=== PATIENT | female | born 1955 | race Caucasian/White ===

== ENCOUNTER 2017-08-27 09:15 | Inpatient (IN) | payer BC ==
[2017-10-01] MEDS ORDERED: Sodium Chloride 0.9% 10 ML Syringe FLUSH PRN (00:01)
[2017-10-01] MEDS ORDERED: Lidocaine 1%/Sod Bicarbonate in NS 8.4% 1 ML Syringe IDERM PRN (00:01)
[2017-10-01] MEDS ORDERED: Ropivacaine 0.5% 5 MG/ML 30 ML SDV ONE (07:51)
[2017-10-01] MEDS ORDERED: EPINEPHrine 1 MG/ML SDV ONE (07:51)
[2017-10-01] MEDS: Lactated Ringers 1,000 ML IV SCH ×2 (09:25→12:28)
--- NOTE | 2017-10-01 10:01 | PCM.PREANE ---
Preanesthetic Assessment - Anesthesia/Transfusion/Family Hx Anesthesia History: Prior Anesthesia Without Reaction Family History of Anesthesia Reaction: No Transfusion History: No Prior Transfusion(s) Type of Transfusion Reactions: Reports: Unknown - Review of Systems General: No Symptoms Pulmonary: No Symptoms Cardiovascular: No Symptoms Gastrointestinal: No Symptoms Neurological: Numbness (hands and feet) Other: Reports: Easy Bleeding, Easy Bruising, Diabetes (132 this am) - Physical Assessment NPO Status Date: 10/01/17 NPO Status Time: 08:45 Pulse: 82 O2 Sat by Pulse Oximetry: 90 Respiratory Rate: 20 Blood Pressure: 122/86 Temperature: 36.9 C Vital Signs: Last Vital Signs Temp 36.9 C 10/01/17 09:10 Pulse 82 10/01/17 09:10 Resp 20 10/01/17 09:10 BP 122/86 10/01/17 09:10 Pulse Ox 90 L 10/01/17 09:10 Height: 1.57 m Weight: 104.1 kg ASA Class: 2 Mental Status: Alert & Oriented x3 Dentition: Reports: Normal Dentition (numb bottom right of chin), Dentures (top) Thyro-Mental Finger Breadths: 3 Mouth Opening Finger Breadths: 3 ROM/Head Extension: Full Lungs: Clear to Auscultation, Normal Respiratory Effort Cardiovascular: Regular Rate, Regular Rhythm, No Murmurs - Lab Values: Laboratory Last Values POC Glucose 132 mg/dL (80-115) H 10/01/17 09:22 MRSA (PCR) Negative 09/18/17 15:47 - Allergies Allergies/Adverse Reactions: Allergies Allergy/AdvReac Type Severity Reaction Status Date / Time codeine Allergy Nausea and Verified 10/01/17 09:52 Vomiting hydrocodone Allergy Nausea and Verified 10/01/17 09:52 Vomiting morphine Allergy Nausea and Verified 10/01/17 09:52 Vomiting oxycodone Allergy Nausea and Verified 10/01/17 09:52 Vomiting Sulfa (Sulfonamide Allergy Nausea and Verified 10/01/17 09:52 Antibiotics) Vomiting - Anesthesia Plan Pre-Op Medication Ordered: None - Acknowledgements Anesthesia Type Planned: Spinal Pt an Appropriate Candidate for the Planned Anesthesia: Yes Alternatives and Risks of Anesthesia Discussed w Pt/Guardian: Yes Pt/Guardian Understands and Agrees with Anesthesia Plan: Yes PreAnesthesia Questionnaire HEENT History: Reports: Impaired Vision Other HEENT History: Upper denture, glasses Cardiovascular History: Reports: High Cholesterol, Hypertension Respiratory History: Reports: Other (See Below) Other Respiratory History: URI Gastrointestinal History: Reports: GERD, Helicobacter Pylori, Other (See Below) Other Gastrointestinal History: elevated LFTs Genitourinary History: Reports: None 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: 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: Other (See Below) Other OB/BYN History: malignat neoplasm of breast Musculoskeletal History: Reports: Arthritis, Fibromyalgia, Gout, Other (See Below) Other Musculoskeletal History: sciatica Neurological History: Reports: None Psychiatric History: Reports: None Endocrine/Metabolic History: Reports: Diabetes, Type II Hematologic History: Reports: Other (See Below) Other Hematologic History: hypokalemia Immunologic History: Reports: None Oncologic (Cancer) History: Reports: Breast, Other (See Below) Other Oncologic History: priest syndrome Dermatologic History: Reports: None - Past Surgical History Cardiovascular Surgical History: Reports: None Respiratory Surgical History: Reports: None GI Surgical History: Reports: Colonoscopy Female Surgical History: Reports: Breast Implant, Breast Reconstruction, Hysterectomy, Oophorectomy Endocrine Surgical History: Reports: None Neurological Surgical History: Reports: None Musculoskeletal Surgical History: Reports: Hip Replacement Oncologic Surgical History: Reports: Mastectomy Dermatological Surgical History: Reports: None - SUBSTANCE USE Smoking Status *Q: Former Smoker Second Hand Smoke Exposure: No Days Per Week of Alcohol Use: 4 Number of Drinks Per Day: 5 Total Drinks Per Week: 20 Recreational Drug Use History: No - HOME MEDS Home Medications: Home Meds Carisoprodol 350 mg PO QID PRN 04/14/16 [History] Empagliflozin [Jardiance] 25 mg PO DAILY 04/14/16 [History] Furosemide 20 mg PO DAILY PRN 04/14/16 [History] metFORMIN HCl [Metformin HCl ER] 750 mg PO DAILY 04/14/16 [History] traMADol [Ultram] 50 mg PO QID PRN 04/14/16 [History] Omeprazole Magnesium [Prilosec Otc] 20 mg PO BID 04/17/16 [History] Rosuvastatin [Crestor] 20 mg PO DAILY 04/17/16 [History] Ibuprofen 800 mg PO TID PRN 09/28/17 [History] Indomethacin [Indocin] 50 mg PO TID PRN 09/28/17 [History] - CURRENT (IN HOUSE) MEDS Current Meds: Current Medications Lactated Ringer's (Ringers, Lactated) 1,000 mls @ 125 mls/hr IV ASDIRECTED [facility]ANTE Stop: 10/01/17 18:00 Last Admin: 10/01/17 09:25 Dose: 125 mls/hr Lidocaine/Sodium Bicarbonate (Buffered Lidocaine 1% In Ns 8.4%) 0.25 ml IDERM ONETIME PRN PRN Reason: Prior to IV Start Stop: 10/01/17 18:00 Last Admin: 10/01/17 09:24 Dose: 0.25 ml Sodium Chloride (Saline Flush) 10 ml FLUSH ASDIRECTED PRN PRN Reason: Keep Vein Open Stop: 10/01/17 18:00 Discontinued Medications Epinephrine HCl (Adrenalin) Confirm Administered Dose 1 mg .ROUTE .STK-MED ONE Stop: 10/01/17 07:52 Ropivacaine (Naropin 0.5%) Confirm Administered Dose 30 ml .ROUTE .STK-MED ONE Stop: 10/01/17 07:52
[2017-10-01] MEDS ORDERED: Acetaminophen/oxyCODONE 325-5 MG Tab PO PRN ×2 (11:21→11:54)
[2017-10-01] MEDS ORDERED: Morphine 2 MG/ML Syringe IVPUSH PRN ×2 (11:22→11:52)
[2017-10-01] MEDS ORDERED: Sennosides 8.6 MG Tab PO PRN (11:22)
[2017-10-01] MEDS ORDERED: Naloxone 0.4 MG/ML SDV IVPUSH PRN (11:22)
[2017-10-01] MEDS ORDERED: Bisacodyl 5 MG Tab PO PRN (11:22)
[2017-10-01] MEDS ORDERED: Ondansetron 4 MG/2 ML SDV IVPUSH PRN (11:22)
[2017-10-01] MEDS ORDERED: Magnesium Hydroxide 400 MG/5 ML Susp 30 ML Cup PO PRN (11:22)
[2017-10-01] MEDS ORDERED: Bupivacaine 0.25% 30 ML SDV ONE (11:35)
[2017-10-01] MEDS ORDERED: Iodine/Sodium Iodide 2% Tincture 30 ML Bottle ONE (11:35)
[2017-10-01] MEDS ORDERED: ceFAZolin 1 GM Vial ONE ×2 (11:35→11:56)
[2017-10-01] MEDS ORDERED: Vancomycin 1 GM SDV ONE (11:35)
[2017-10-01] MEDS ORDERED: Propofol 200 MG/20 ML SDV ONE ×4 (11:56→14:19)
[2017-10-01] MEDS ORDERED: Midazolam 1 MG/ML 2 ML SDV ONE ×2 (11:56→14:04)
[2017-10-01] MEDS ORDERED: Lidocaine 1% 4 ML ONE (12:26)
[2017-10-01] MEDS ORDERED: Ondansetron 4 MG/2 ML SDV ONE (12:27)
[2017-10-01] MEDS ORDERED: fentaNYL 100 MCG/2 ML SDV ONE (12:38)
[2017-10-01] MEDS ORDERED: Bupivacaine 0.75% 30 ML SDV ONE (12:41)
[2017-10-01] MEDS ORDERED: Lactated Ringers 1,000 ML ONE (13:57)
[2017-10-01] MEDS: Morphine 8 MG, EPINEPHrine 0.3 MG, Cefuroxime 750 MG, Ketorolac 30 MG, Sodium Chloride ... ONE ×10 (14:07→16:42)
[2017-10-01] MEDS ORDERED: fentaNYL 100 MCG/2 ML SDV IVPUSH PRN (14:52)
[2017-10-01] MEDS ORDERED: HYDROmorphone 0.5 MG/0.5 ML Syringe IVPUSH PRN (14:52)
--- NOTE | 2017-10-01 14:55 | PCM.POSTAN ---
POST ANESTHESIA ASSESSMENT - MENTAL STATUS Mental Status: Alert, Oriented - VITAL SIGNS Pulse Rate: 87 SaO2: 93 Resp Rate: 17 Blood Pressure: 111/64 Temperature: 37.6 C - RESPIRATORY Respiratory Status: Respiratory Rate WNL, Airway Patent, O2 Saturation Stable, Supplemental Oxygen - CARDIOVASCULAR CV Status: Pulse Rate WNL, Blood Pressure Stable - GASTROINTESTINAL GI Status: No Symptoms - PAIN Pain Score: 0 - POST OP HYDRATION Hydration Status: Adequate & Stable - OBSERVATIONS Free Text/Narrative:: no anesthesia complications noted
--- NOTE | 2017-10-01 15:21 | PCM.SN ---
- Free Text/Narrative Note: Left selective femoral nerve block at the adductor canal for post-procedure pain control Time Out: 1503 Start: 1503 End: 1510 Chart reviewed. Consent signed. Questions answered. Appropriate monitors applied. Time out performed. Left mid-shaft femur evaluated with ultrasound. Scanning medially femur, I was able to identify the femoral artery in the adductor canal. The saphenous nerve was lateral to the artery. The skin was prepped lateral to the ultrasound probe with chlorahexadine. The 21ga 4 insulated block needle was inserted under direct ultrasound guidance into the adductor canal. 25mL of 0.5% ropivacaine with 1:200,000 epinephrine was injected cirmcumferentially about the nerve with intermittent negative aspiration every 5mL. Patient tolerated the procedure well. See pictures on progress note and vital signs on nurses notes. Block completed postoperatively. Amadou Garcia CRNA
--- NOTE | 2017-10-01 15:28 | CR ---
Left knee: AP and lateral views of the left knee were obtained. Comparison: No prior knee exam. Knee prosthesis is seen. Components are aligned. Soft tissue air is noted from the surgical procedure. Underlying bony structures are intact. Impression: 1. Satisfactory postoperative radiographic appearance of recently placed left knee prosthesis. Diagnostic code #2
[2017-10-01] MEDS ORDERED: Furosemide 20 MG Tab PO PRN (15:59)
[2017-10-01] MEDS ORDERED: CARISOPRODOL 350 MG PO PRN (15:59)
[2017-10-01] MEDS ORDERED: HYDROmorphone 0.5 MG/0.5 ML SYRINGE IVPUSH PRN ×2 (16:07→20:17)
[2017-10-01] MEDS ORDERED: HYDROmorphone 2 MG Tab PO PRN (16:41)
[2017-10-01] MEDS ORDERED: HYDROmorphone 0.5 MG/0.5 ML SYRINGE IVPUSH SCH (16:41)
[2017-10-01] MEDS: traMADol 50 MG Tab PO PRN (18:11)
[2017-10-01] MEDS: Omeprazole 20 MG Cap.CR***OWN MED PO SCH (18:33)
[2017-10-01] MEDS: ceFAZolin 2 GM in Premix Bag 1 BAG IV SCH (20:31)
[2017-10-01] MEDS: Ketorolac 15 MG/ML SDV IVPUSH PRN (20:32)
[2017-10-01] MEDS: HYDROmorphone 2 MG Tab PO PRN (20:33)
[2017-10-01] MEDS: Docusate Sodium 100 MG Cap PO SCH (20:34)
[2017-10-01] MEDS ORDERED: Famotidine 20 MG Tab PO SCH (21:00)
[2017-10-01] MEDS ORDERED: Cyclobenzaprine 10 MG Tab PO PRN (21:09)
[2017-10-01] MEDS: Cyclobenzaprine 10 MG Tab PO PRN (22:54)
[2017-10-02] MEDS: HYDROmorphone 2 MG Tab PO PRN ×3 (01:01→11:05)
[2017-10-02] MEDS: Ketorolac 15 MG/ML SDV IVPUSH PRN ×2 (02:27→08:45)
[2017-10-02] MEDS: ceFAZolin 2 GM in Premix Bag 1 BAG IV SCH ×2 (03:58→11:06)
[2017-10-02] MEDS: traMADol 50 MG Tab PO PRN (03:59)
[2017-10-02] MEDS: Omeprazole 20 MG Cap.CR***OWN MED PO SCH (05:10)
--- NOTE | 2017-10-02 07:14 | PCM.CONSN ---
- General Info Date of Service: 10/02/17 - Patient Data Vitals - Most Recent: Last Vital Signs Temp 98.8 F 10/02/17 04:20 Pulse 69 10/02/17 04:20 Resp 18 10/02/17 04:20 BP 137/98 H 10/02/17 04:20 Pulse Ox 91 L 10/02/17 04:20 Weight - Most Recent: 239 lb I&O - Last 24 Hours: Intake & Output 10/01/17 10/02/17 10/02/17 22:59 06:59 14:59 Intake Total 820 1400 Output Total 1975 Balance 820 -575 Lab Results Last 24 Hours: Laboratory Results - last 24 hr 10/01/17 10/02/17 Range/Units 09:22 06:10 WBC 8.09 (3.98-10.04) K/mm3 RBC 4.13 (3.98-5.22) M/mm3 Hgb 13.1 (11.2-15.7) gm/L Hct 39.9 (34.1-44.9) % MCV 96.6 H (79.4-94.8) fl MCH 31.7 (25.6-32.2) pg MCHC 32.8 (32.2-35.5) g/dl RDW Std Deviation 48.0 H (36.4-46.3) fL Plt Count 135 L (182-369) K/mm3 MPV 11.3 (9.4-12.3) fl POC Glucose 132 H (80-115) mg/dL Med Orders - Current: Current Medications Bisacodyl (Dulcolax) 5 mg PO DAILY PRN PRN Reason: Constipation Cyclobenzaprine HCl (Flexeril) 10 mg PO TID PRN PRN Reason: Spasms Last Admin: 10/01/17 22:54 Dose: 10 mg Docusate Sodium (Colace) 100 mg PO BID [facility]TE Last Admin: 10/01/17 20:34 Dose: 100 mg Furosemide (Lasix) 20 mg PO DAILY PRN PRN Reason: Edema Last Admin: 10/01/17 18:13 Dose: 20 mg Hydromorphone HCl (Dilaudid) 2 mg PO Q4H PRN PRN Reason: Pain Last Admin: 10/02/17 05:09 Dose: 2 mg Hydromorphone HCl (Dilaudid) 0.5 mg IVPUSH Q2H PRN PRN Reason: Pain Cefazolin Sodium/Dextrose 2 gm (/ Premix) 50 mls @ 100 mls/hr IV Q8H [facility] Stop: 10/02/17 12:29 Last Admin: 10/02/17 03:58 Dose: 100 mls/hr Ketorolac Tromethamine (Toradol) 15 mg IVPUSH Q6H PRN PRN Reason: Pain Last Admin: 10/02/17 02:27 Dose: 15 mg Magnesium Hydroxide (Milk Of Magnesia) 30 ml PO BID PRN PRN Reason: Constipation Naloxone HCl (Narcan) 0.1 mg IVPUSH Q5M PRN PRN Reason: Oversedation (Empagliflozin [ Jardiance] 25 Mg) Own Med 25 mg PO DAILY [facility] (Metformin 750 Mg Xr ()Own Med) 750 mg PO DAILY [facility] Omeprazole (Omeprazole) 20 mg PO BIDAC [facility] Last Admin: 10/02/17 05:10 Dose: 20 mg Ondansetron HCl (Zofran) 4 mg IVPUSH Q6H PRN PRN Reason: Nausea/Vomiting Rivaroxaban (Xarelto) 10 mg PO DAILY [facility] Rosuvastatin Calcium (Crestor) 20 mg PO DAILY [facility] Senna (Senna) 8.6 mg PO BID PRN PRN Reason: Constipation Tramadol HCl (Ultram) 50 mg PO QID PRN PRN Reason: Pain Last Admin: 10/02/17 03:59 Dose: 50 mg Discontinued Medications Bupivacaine HCl (Marcaine 0.25%) Confirm Administered Dose 30 ml .ROUTE .STK- MED ONE Stop: 10/01/17 11:36 Last Admin: 10/01/17 14:07 Dose: 30 ml Bupivacaine HCl (Sensorcaine-Mpf 0.75%) Confirm Administered Dose 30 ml .ROUTE .STK-MED ONE Stop: 10/01/17 12:42 Cefazolin Sodium (Ancef) Confirm Administered Dose 2 gm .ROUTE .STK-MED ONE Stop: 10/01/17 11:36 Cefazolin Sodium (Ancef) Confirm Administered Dose 2 gm .ROUTE .STK-MED ONE Stop: 10/01/17 11:57 Last Admin: 10/01/17 14:03 Dose: 2 gm Morphine Sulfate 8 mg/Epinephrine HCl 0.3 mg/Cefuroxime Sodium 750 mg/Ketorolac Tromethamine 30 mg/Sodium Chloride 27.9 ml 0 mg .XX ONETIME ONE Stop: 10/01/17 11:22 Last Admin: 10/01/17 16:42 Dose: Not Given Cyclobenzaprine HCl (Flexeril) 10 mg PO TID PRN PRN Reason: spasms Epinephrine HCl (Adrenalin) Confirm Administered Dose 1 mg .ROUTE .STK-MED ONE Stop: 10/01/17 07:52 Famotidine (Pepcid) 20 mg PO Q12H [facility] Fentanyl (Sublimaze) Confirm Administered Dose 100 mcg .ROUTE .STK-MED ONE Stop: 10/01/17 12:39 Fentanyl (Sublimaze) 50 mcg IVPUSH Q5M PRN PRN Reason: Pain Stop: 10/01/17 17:30 Hydromorphone HCl (Dilaudid) 0.5 mg IVPUSH ONETIME PRN PRN Reason: Pain Stop: 10/01/17 17:30 Hydromorphone HCl (Dilaudid) 0.2 mg IVPUSH Q2H PRN PRN Reason: Pain Last Admin: 10/01/17 18:26 Dose: 0.2 mg Hydromorphone HCl (Dilaudid) 0.5 mg IVPUSH Q2H [facility] Hydromorphone HCl (Dilaudid) 2 mg PO Q4H PRN PRN Reason: Pain Lactated Ringer's (Ringers, Lactated) 1,000 mls @ 125 mls/hr IV ASDIRECTED [facility] Stop: 10/01/17 18:00 Last Admin: 10/01/17 12:28 Dose: 125 mls/hr Lidocaine HCl (Xylocaine-Mpf 1%) Confirm Administered Dose 4 mls @ as directed .ROUTE .STK-MED ONE Stop: 10/01/17 12:27 Lactated Ringer's (Ringers, Lactated) Confirm Administered Dose 1,000 mls @ as directed .ROUTE .STK-MED ONE Stop: 10/01/17 13:58 Iodine (Iodine 2% Mild Tincture) Confirm Administered Dose 30 ml .ROUTE .STK- MED ONE Stop: 10/01/17 11:36 Last Admin: 10/01/17 14:00 Dose: 18 ml Lidocaine/Sodium Bicarbonate (Buffered Lidocaine 1% In Ns 8.4%) 0.25 ml IDERM ONETIME PRN PRN Reason: Prior to IV Start Stop: 10/01/17 18:00 Last Admin: 10/01/17 09:24 Dose: 0.25 ml Midazolam HCl (Versed 1 Mg/Ml) Confirm Administered Dose 2 mg .ROUTE .STK-MED ONE Stop: 10/01/17 11:57 Midazolam HCl (Versed 1 Mg/Ml) Confirm Administered Dose 2 mg .ROUTE .STK-MED ONE Stop: 10/01/17 14:05 Morphine Sulfate (Morphine) 2 mg IVPUSH Q2H PRN PRN Reason: BRAKTHROUGH PAIN Non-Formulary Medication (Carisoprodol) 350 mg PO QID PRN PRN Reason: asdirected Ondansetron HCl (Zofran) Confirm Administered Dose 4 mg .ROUTE .STK-MED ONE Stop: 10/01/17 12:28 Oxycodone/Acetaminophen (Percocet 325-5 Mg) 1 - 2 tab PO Q4H PRN PRN Reason: APIN Propofol (Diprivan 20 Ml) Confirm Administered Dose 600 mg .ROUTE .STK-MED ONE Stop: 10/01/17 11:57 Propofol (Diprivan 20 Ml) Confirm Administered Dose 200 mg .ROUTE .STK-MED ONE Stop: 10/01/17 13:39 Propofol (Diprivan 20 Ml) Confirm Administered Dose 200 mg .ROUTE .STK-MED ONE Stop: 10/01/17 13:57 Propofol (Diprivan 20 Ml) Confirm Administered Dose 200 mg .ROUTE .STK-MED ONE Stop: 10/01/17 14:20 Ropivacaine (Naropin 0.5%) Confirm Administered Dose 30 ml .ROUTE .STK-MED ONE Stop: 10/01/17 07:52 Sodium Chloride (Saline Flush) 10 ml FLUSH ASDIRECTED PRN PRN Reason: Keep Vein Open Stop: 10/01/17 18:00 Tranexamic Acid (Cyklokapron) Confirm Administered Dose 1,000 mg .ROUTE .STK- MED ONE Stop: 10/01/17 11:36 Last Admin: 10/01/17 14:13 Dose: 1,000 mg Vancomycin HCl (Vancomycin) Confirm Administered Dose 1 gm .ROUTE .STK-MED ONE Stop: 10/01/17 11:36 Last Admin: 10/01/17 14:10 Dose: 1 gm Consult PN Assessment/Plan Procedures: Procedures ASSAY GLUCOSE BLOOD QUANT (01/29/17) ASSAY OF FERRITIN (04/05/16) ASSAY OF PREALBUMIN (09/20/17) ASSAY THYROID STIM HORMONE (03/14/17) CHEST X-RAY 2VW FRONTAL&LATL (04/05/16) COMPLETE CBC AUTOMATED (05/28/15) COMPLETE CBC W/AUTO DIFF WBC (05/02/16) COMPREHEN METABOLIC PANEL (04/05/16) DXA BONE DENSITY AXIAL (09/24/17) GLYCOSYLATED HEMOGLOBIN TEST (09/20/17) HPYLORI STOOL IA (04/05/16) LIPID PANEL (03/14/17) MANUAL THERAPY 1/> REGIONS (05/23/16) METABOLIC PANEL TOTAL CA (05/02/16) MRI LUMBAR SPINE W/O DYE (10/14/15) NEUROMUSCULAR REEDUCATION (05/23/16) PROTHROMBIN TIME (09/20/17) PT EVAL LOW COMPLEX 20 MIN (05/23/16) ROUTINE VENIPUNCTURE (09/20/17) THERAPEUTIC EXERCISES (05/25/16) THROMBOPLASTIN TIME PARTIAL (09/20/17) UR ALBUMIN SEMIQUANTITATIVE (04/05/16) URINALYSIS AUTO W/O SCOPE (05/28/15) URINALYSIS AUTO W/SCOPE (05/02/16) US EXAM ABDOM COMPLETE (06/07/15) VITAMIN D 25 HYDROXY (04/05/16) X-RAY EXAM CHEST 2 VIEWS (09/20/17) X-RAY EXAM L-2 SPINE 4/>VWS (10/14/15)
--- NOTE | 2017-10-02 07:41 | PCM.CONS ---
H&P History of Present Illness - General Date of Service: 10/02/17 Admit Problem/Dx: Admission Diagnosis/Problem Admission Diagnosis/Problem Osteoarthritis of knee Source of Information: Patient, Old Records, Provider, RN Notes Reviewed History Limitations: Reports: Physical Impairment - History of Present Illness Initial Comments - Free Text/Narative: This is a 62-year-old, white female, with past medical history of HTN, HLD, OA, Fibromyalgia, Morbid Obesity and DM2 who underwent left total knee arthroplasty post operative day 1. Patient is doing relatively well. Currently, her pain is not controlled. She denies any acute issues. Medicine was consulted for postoperative care. Left Knee Pain Score (Numeric/FACES): 5 - Related Data Allergies/Adverse Reactions: Allergies Allergy/AdvReac Type Severity Reaction Status Date / Time codeine AdvReac Nausea and Verified 10/01/17 11:40 Vomiting hydrocodone AdvReac Nausea and Verified 10/01/17 11:40 Vomiting morphine AdvReac Nausea and Verified 10/01/17 11:56 Vomiting oxycodone AdvReac Nausea and Verified 10/01/17 11:57 Vomiting Sulfa (Sulfonamide AdvReac Nausea and Verified 10/01/17 11:40 Antibiotics) Vomiting Home Medications: Home Meds Carisoprodol 350 mg PO QID PRN 04/14/16 [History] Empagliflozin [Jardiance] 25 mg PO DAILY 04/14/16 [History] Furosemide 20 mg PO DAILY PRN 04/14/16 [History] metFORMIN HCl [Metformin HCl ER] 750 mg PO DAILY 04/14/16 [History] traMADol [Ultram] 50 mg PO QID PRN 04/14/16 [History] Omeprazole Magnesium [Prilosec Otc] 20 mg PO BID 04/17/16 [History] Rosuvastatin [Crestor] 20 mg PO DAILY 04/17/16 [History] Bisacodyl [Dulcolax] 5 mg PO DAILY PRN tablet 10/01/17 [Rx] Docusate Sodium [Colace] 100 mg PO BID cap 10/01/17 [Rx] HYDROmorphone [Dilaudid] 2 mg PO Q4H PRN #60 tablet 10/01/17 [Rx] Magnesium Hydroxide [Milk of Magnesia] 30 ml PO BID PRN cup 10/01/17 [Rx] Rivaroxaban [Xarelto] 10 mg PO DAILY #40 tablet 10/01/17 [Rx] Sennosides [Senna] 8.6 mg PO BID PRN tablet 10/01/17 [Rx] Past Medical History HEENT History: Reports: Impaired Vision Other HEENT History: Upper denture, glasses Cardiovascular History: Reports: High Cholesterol, Hypertension Respiratory History: Reports: Other (See Below) Other Respiratory History: URI Gastrointestinal History: Reports: GERD, Helicobacter Pylori, Other (See Below) Other Gastrointestinal History: elevated LFTs Genitourinary History: Reports: None 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 (See Below) Other OB/BYN History: malignat neoplasm of breast Musculoskeletal History: Reports: Arthritis, Fibromyalgia, Gout, Other (See Below) Other Musculoskeletal History: sciatica Neurological History: Reports: None Psychiatric History: Reports: None Endocrine/Metabolic History: Reports: Diabetes, Type II Hematologic History: Reports: Other (See Below) Other Hematologic History: hypokalemia Immunologic History: Reports: None Oncologic (Cancer) History: Reports: Breast, Other (See Below) Other Oncologic History: priest syndrome Dermatologic History: Reports: None - Infectious Disease History Infectious Disease History: Reports: None - Past Surgical History Cardiovascular Surgical History: Reports: None Respiratory Surgical History: Reports: None GI Surgical History: Reports: Colonoscopy Female Surgical History: Reports: Breast Implant, Breast Reconstruction, Hysterectomy, Oophorectomy Endocrine Surgical History: Reports: None Neurological Surgical History: Reports: None Musculoskeletal Surgical History: Reports: Hip Replacement Oncologic Surgical History: Reports: Mastectomy Dermatological Surgical History: Reports: None Social & Family History - Family History Family Medical History: Noncontributory - Tobacco Use Smoking Status *Q: Former Smoker Years of Tobacco use: 30 Used Tobacco, but Quit: Yes Month/Year Tobacco Last Used: 2004 Second Hand Smoke Exposure: No - Caffeine Use Caffeine Use: Reports: Coffee - Alcohol Use Days Per Week of Alcohol Use: 4 Number of Drinks Per Day: 5 Total Drinks Per Week: 20 - Recreational Drug Use Recreational Drug Use: No H&P Review of Systems - Review of Systems: Review Of Systems: See Below General: Denies: Fever, Chills, Weakness HEENT: Reports: No Symptoms Pulmonary: Denies: Shortness of Breath Cardiovascular: Denies: Chest Pain, Dyspnea on Exertion, Blood Pressure Problem Gastrointestinal: Denies: Abdominal Pain, Anorexia, Nausea, Vomiting Genitourinary: Reports: No Symptoms Musculoskeletal: Reports: No Symptoms Skin: Denies: Cyanosis, Jaundice, Mottled, Diaphoresis, Dryness, Bruising, Wound Psychiatric: Denies: Confusion, Agitation, Hallucinations, Suicidal Ideation Neurological: Reports: Difficulty Walking, Gait Disturbance. Denies: Confusion Hematologic/Lymphatic: Reports: No Symptoms Immunologic: Reports: No Symptoms Exam - Exam Exam: See Below - Vital Signs Vital Signs: Last Vital Signs Temp 37.1 C 10/02/17 04:20 Pulse 69 10/02/17 04:20 Resp 18 10/02/17 04:20 BP 137/98 H 10/02/17 04:20 Pulse Ox 91 L 10/02/17 04:20 Weight: 108.409 kg - Exam General: Alert, Oriented, Cooperative, Other (Morbidly Obese) HEENT: Conjunctiva Clear, EACs Clear, EOMI, Hearing Intact, Mucosa Moist & [place] , Nares Patent, Normal Nasal Septum, Posterior Pharynx Clear, Pupils Equal, Pupils Reactive Neck: Supple, Trachea Midline, Full Range of Motion, Other (short and thick) Lungs: Normal Respiratory Effort, Decreased Breath Sounds Cardiovascular: Regular Rate, Regular Rhythm GI/Abdominal Exam: Normal Bowel Sounds, Soft, Non-Tender, No Organomegaly, No Distention, No Abnormal Bruit, No Mass, Pelvis Stable, Other (Obese) (Female) Exam: Deferred Rectal (Female) Exam: Deferred Back Exam: Normal Inspection, Decreased Range of Motion Extremities: Normal Inspection, Normal Range of Motion (right lower extremity), Non-Tender, No Pedal Edema, Normal Capillary Refill, Limited Range of Motion ( left lower extremity) Peripheral Pulses: 2+: Posterior Tibial (L), Posterior Tibial (R), Dorsalis Pedis (L), Dorsalis Pedis (R) Skin: Warm, Dry, Intact Skin Alteration Location (Drawings Not To Scale): 1 - knee wrap Neuro Extensive - Mental Status: Oriented x3, Normal Cognition, Memory Intact Neuro Extensive - Motor, Sensory, Reflexes: CN II-XII Intact (limited due to bdy habitus), Abnormal Gait Psychiatric: Alert, Normal Affect, Normal Mood - Patient Data Lab Results Last 24 hrs: Laboratory Results - last 24 hr 10/01/17 10/02/17 10/02/17 Range/Units 09:22 06:10 06:10 WBC 8.09 (3.98-10.04) K/mm3 RBC 4.13 (3.98-5.22) M/mm3 Hgb 13.1 (11.2-15.7) gm/L Hct 39.9 (34.1-44.9) % MCV 96.6 H (79.4-94.8) fl MCH 31.7 (25.6-32.2) pg MCHC 32.8 (32.2-35.5) g/dl RDW Std Deviation 48.0 H (36.4-46.3) fL Plt Count 135 L (182-369) K/mm3 MPV 11.3 (9.4-12.3) fl Sodium 139 (136-145) mEq/L Potassium 2.9 L (3.5-5.1) mEq/L Chloride 101 (98-107) mEq/L Carbon Dioxide 28 (21-32) mEq/L Anion Gap 12.9 (5-15) BUN 8 (7-18) mg/dL Creatinine 0.8 (0.55-1.02) mg/dL Est Cr Clr Drug Dosing 58.41 mL/min Estimated GFR (MDRD) > 60 (>60) mL/min BUN/Creatinine Ratio 10.0 L (14-18) Glucose 132 H (80-115) mg/dL POC Glucose 132 H (80-115) mg/dL Calcium 7.9 L (8.5-10.1) mg/dL Total Bilirubin 0.4 (0.2-1.0) mg/dL AST 23 (15-37) U/L ALT 28 (14-59) U/L Alkaline Phosphatase 71 (46-116) U/L Total Protein 6.2 L (6.4-8.2) g/dl Albumin 3.1 L (3.4-5.0) g/dl Globulin 3.1 gm/dL Albumin/Globulin Ratio 1.0 (1-2) 10/02/17 Range/Units 07:09 WBC (3.98-10.04) K/mm3 RBC (3.98-5.22) M/mm3 Hgb (11.2-15.7) gm/L Hct (34.1-44.9) % MCV (79.4-94.8) fl MCH (25.6-32.2) pg MCHC (32.2-35.5) g/dl RDW Std Deviation (36.4-46.3) fL Plt Count (182-369) K/mm3 MPV (9.4-12.3) fl Sodium (136-145) mEq/L Potassium (3.5-5.1) mEq/L Chloride (98-107) mEq/L Carbon Dioxide (21-32) mEq/L Anion Gap (5-15) BUN (7-18) mg/dL Creatinine (0.55-1.02) mg/dL Est Cr Clr Drug Dosing mL/min Estimated GFR (MDRD) (>60) mL/min BUN/Creatinine Ratio (14-18) Glucose (80-115) mg/dL POC Glucose 133 H (80-115) mg/dL Calcium (8.5-10.1) mg/dL Total Bilirubin (0.2-1.0) mg/dL AST (15-37) U/L ALT (14-59) U/L Alkaline Phosphatase (46-116) U/L Total Protein (6.4-8.2) g/dl Albumin (3.4-5.0) g/dl Globulin gm/dL Albumin/Globulin Ratio (1-2) Result Diagrams: 10/02/17 06:10 10/02/17 06:10 Consult PN Assessment/Plan POD#: 0 Procedures: Procedures ASSAY GLUCOSE BLOOD QUANT (01/29/17) ASSAY OF FERRITIN (04/05/16) ASSAY OF PREALBUMIN (09/20/17) ASSAY THYROID STIM HORMONE (03/14/17) CHEST X-RAY 2VW FRONTAL&LATL (04/05/16) COMPLETE CBC AUTOMATED (05/28/15) COMPLETE CBC W/AUTO DIFF WBC (05/02/16) COMPREHEN METABOLIC PANEL (04/05/16) DXA BONE DENSITY AXIAL (09/24/17) GLYCOSYLATED HEMOGLOBIN TEST (09/20/17) HPYLORI STOOL IA (04/05/16) LIPID PANEL (03/14/17) MANUAL THERAPY 1/> REGIONS (05/23/16) METABOLIC PANEL TOTAL CA (05/02/16) MRI LUMBAR SPINE W/O DYE (10/14/15) NEUROMUSCULAR REEDUCATION (05/23/16) PROTHROMBIN TIME (09/20/17) PT EVAL LOW COMPLEX 20 MIN (05/23/16) ROUTINE VENIPUNCTURE (09/20/17) THERAPEUTIC EXERCISES (05/25/16) THROMBOPLASTIN TIME PARTIAL (09/20/17) UR ALBUMIN SEMIQUANTITATIVE (04/05/16) URINALYSIS AUTO W/O SCOPE (05/28/15) URINALYSIS AUTO W/SCOPE (05/02/16) US EXAM ABDOM COMPLETE (06/07/15) VITAMIN D 25 HYDROXY (04/05/16) X-RAY EXAM CHEST 2 VIEWS (09/20/17) X-RAY EXAM L-2 SPINE 4/>VWS (10/14/15) Problem List Initiated/Reviewed/Updated: Yes My Orders Last 24 Hours: My Active Orders 10/02/17 06:44 Blood Glucose Check, Bedside [RC] ONETIME Plan: Assessment: Acute: Post-Operative Care State - Stable - Continue to monitor for hemodynamic instability S/p Left Total Knee Arthroplasty - Stable - DVT and Pain Management as per primary team Hx/o Chronic Left Knee Pain - Pain not well controlled - Pain Management as per primary team Chronic: HTN HLD OA Fibromyalgia DM2 Morbid Obesity Plan: She is clinically stable Routine AM labs Counseled on life style modifications Continue PT/OT IS q2 awake Thank you for the opportunity to participate in the management of this patient
--- NOTE | 2017-10-02 07:48 | PCM.SURGPN ---
- General Info Date of Service: 10/02/17 POD#: 1 Functional Status: Reports: Pain Controlled, Tolerating Diet, Ambulating, Urinating, Incentive Spirometry - Review of Systems Musculoskeletal: Reports: Other - Patient Data Vitals - Most Recent: Last Vital Signs Temp 98.8 F 10/02/17 04:20 Pulse 69 10/02/17 04:20 Resp 18 10/02/17 04:20 BP 137/98 H 10/02/17 04:20 Pulse Ox 91 L 10/02/17 04:20 Weight - Most Recent: 239 lb I&O - Last 24 Hours: Intake & Output 10/01/17 10/02/17 10/02/17 22:59 06:59 14:59 Intake Total 820 1400 Output Total 1975 Balance 820 -575 Lab Results Last 24 Hrs: Laboratory Results - last 24 hr 10/01/17 10/02/17 10/02/17 Range/Units 09:22 06:10 06:10 WBC 8.09 (3.98-10.04) K/mm3 RBC 4.13 (3.98-5.22) M/mm3 Hgb 13.1 (11.2-15.7) gm/L Hct 39.9 (34.1-44.9) % MCV 96.6 H (79.4-94.8) fl MCH 31.7 (25.6-32.2) pg MCHC 32.8 (32.2-35.5) g/dl RDW Std Deviation 48.0 H (36.4-46.3) fL Plt Count 135 L (182-369) K/mm3 MPV 11.3 (9.4-12.3) fl Sodium 139 (136-145) mEq/L Potassium 2.9 L (3.5-5.1) mEq/L Chloride 101 (98-107) mEq/L Carbon Dioxide 28 (21-32) mEq/L Anion Gap 12.9 (5-15) BUN 8 (7-18) mg/dL Creatinine 0.8 (0.55-1.02) mg/dL Est Cr Clr Drug Dosing 58.41 mL/min Estimated GFR (MDRD) > 60 (>60) mL/min BUN/Creatinine Ratio 10.0 L (14-18) Glucose 132 H (80-115) mg/dL POC Glucose 132 H (80-115) mg/dL Calcium 7.9 L (8.5-10.1) mg/dL Total Bilirubin 0.4 (0.2-1.0) mg/dL AST 23 (15-37) U/L ALT 28 (14-59) U/L Alkaline Phosphatase 71 (46-116) U/L Total Protein 6.2 L (6.4-8.2) g/dl Albumin 3.1 L (3.4-5.0) g/dl Globulin 3.1 gm/dL Albumin/Globulin Ratio 1.0 (1-2) 10/02/17 Range/Units 07:09 WBC (3.98-10.04) K/mm3 RBC (3.98-5.22) M/mm3 Hgb (11.2-15.7) gm/L Hct (34.1-44.9) % MCV (79.4-94.8) fl MCH (25.6-32.2) pg MCHC (32.2-35.5) g/dl RDW Std Deviation (36.4-46.3) fL Plt Count (182-369) K/mm3 MPV (9.4-12.3) fl Sodium (136-145) mEq/L Potassium (3.5-5.1) mEq/L Chloride (98-107) mEq/L Carbon Dioxide (21-32) mEq/L Anion Gap (5-15) BUN (7-18) mg/dL Creatinine (0.55-1.02) mg/dL Est Cr Clr Drug Dosing mL/min Estimated GFR (MDRD) (>60) mL/min BUN/Creatinine Ratio (14-18) Glucose (80-115) mg/dL POC Glucose 133 H (80-115) mg/dL Calcium (8.5-10.1) mg/dL Total Bilirubin (0.2-1.0) mg/dL AST (15-37) U/L ALT (14-59) U/L Alkaline Phosphatase (46-116) U/L Total Protein (6.4-8.2) g/dl Albumin (3.4-5.0) g/dl Globulin gm/dL Albumin/Globulin Ratio (1-2) Med Orders - Current: Current Medications Bisacodyl (Dulcolax) 5 mg PO DAILY PRN PRN Reason: Constipation Cyclobenzaprine HCl (Flexeril) 10 mg PO TID PRN PRN Reason: Spasms Last Admin: 10/01/17 22:54 Dose: 10 mg Docusate Sodium (Colace) 100 mg PO BID [facility] Last Admin: 10/01/17 20:34 Dose: 100 mg Furosemide (Lasix) 20 mg PO DAILY PRN PRN Reason: Edema Last Admin: 10/01/17 18:13 Dose: 20 mg Hydromorphone HCl (Dilaudid) 2 mg PO Q4H PRN PRN Reason: Pain Last Admin: 10/02/17 05:09 Dose: 2 mg Hydromorphone HCl (Dilaudid) 0.5 mg IVPUSH Q2H PRN PRN Reason: Pain Cefazolin Sodium/Dextrose 2 gm (/ Premix) 50 mls @ 100 mls/hr IV Q8H [facility] Stop: 10/02/17 12:29 Last Admin: 10/02/17 03:58 Dose: 100 mls/hr Ketorolac Tromethamine (Toradol) 15 mg IVPUSH Q6H PRN PRN Reason: Pain Last Admin: 10/02/17 02:27 Dose: 15 mg Magnesium Hydroxide (Milk Of Magnesia) 30 ml PO BID PRN PRN Reason: Constipation Naloxone HCl (Narcan) 0.1 mg IVPUSH Q5M PRN PRN Reason: Oversedation (Empagliflozin [ Jardiance] 25 Mg) Own Med 25 mg PO DAILY [facility] (Metformin 750 Mg Xr ()Own Med) 750 mg PO DAILY [facility] Omeprazole (Omeprazole) 20 mg PO BIDAC [facility] Last Admin: 10/02/17 05:10 Dose: 20 mg Ondansetron HCl (Zofran) 4 mg IVPUSH Q6H PRN PRN Reason: Nausea/Vomiting Rivaroxaban (Xarelto) 10 mg PO DAILY [facility] Rosuvastatin Calcium (Crestor) 20 mg PO DAILY [facility] Senna (Senna) 8.6 mg PO BID PRN PRN Reason: Constipation Tramadol HCl (Ultram) 50 mg PO QID PRN PRN Reason: Pain Last Admin: 10/02/17 03:59 Dose: 50 mg Discontinued Medications Bupivacaine HCl (Marcaine 0.25%) Confirm Administered Dose 30 ml .ROUTE .STK- MED ONE Stop: 10/01/17 11:36 Last Admin: 10/01/17 14:07 Dose: 30 ml Bupivacaine HCl (Sensorcaine-Mpf 0.75%) Confirm Administered Dose 30 ml .ROUTE .STK-MED ONE Stop: 10/01/17 12:42 Cefazolin Sodium (Ancef) Confirm Administered Dose 2 gm .ROUTE .STK-MED ONE Stop: 10/01/17 11:36 Cefazolin Sodium (Ancef) Confirm Administered Dose 2 gm .ROUTE .STK-MED ONE Stop: 10/01/17 11:57 Last Admin: 10/01/17 14:03 Dose: 2 gm Morphine Sulfate 8 mg/Epinephrine HCl 0.3 mg/Cefuroxime Sodium 750 mg/Ketorolac Tromethamine 30 mg/Sodium Chloride 27.9 ml 0 mg .XX ONETIME ONE Stop: 10/01/17 11:22 Last Admin: 10/01/17 16:42 Dose: Not Given Cyclobenzaprine HCl (Flexeril) 10 mg PO TID PRN PRN Reason: spasms Epinephrine HCl (Adrenalin) Confirm Administered Dose 1 mg .ROUTE .STK-MED ONE Stop: 10/01/17 07:52 Famotidine (Pepcid) 20 mg PO Q12H [facility] Fentanyl (Sublimaze) Confirm Administered Dose 100 mcg .ROUTE .STK-MED ONE Stop: 10/01/17 12:39 Fentanyl (Sublimaze) 50 mcg IVPUSH Q5M PRN PRN Reason: Pain Stop: 10/01/17 17:30 Hydromorphone HCl (Dilaudid) 0.5 mg IVPUSH ONETIME PRN PRN Reason: Pain Stop: 10/01/17 17:30 Hydromorphone HCl (Dilaudid) 0.2 mg IVPUSH Q2H PRN PRN Reason: Pain Last Admin: 10/01/17 18:26 Dose: 0.2 mg Hydromorphone HCl (Dilaudid) 0.5 mg IVPUSH Q2H [facility] Hydromorphone HCl (Dilaudid) 2 mg PO Q4H PRN PRN Reason: Pain Lactated Ringer's (Ringers, Lactated) 1,000 mls @ 125 mls/hr IV ASDIRECTED [facility] Stop: 10/01/17 18:00 Last Admin: 10/01/17 12:28 Dose: 125 mls/hr Lidocaine HCl (Xylocaine-Mpf 1%) Confirm Administered Dose 4 mls @ as directed .ROUTE .STK-MED ONE Stop: 10/01/17 12:27 Lactated Ringer's (Ringers, Lactated) Confirm Administered Dose 1,000 mls @ as directed .ROUTE .STK-MED ONE Stop: 10/01/17 13:58 Iodine (Iodine 2% Mild Tincture) Confirm Administered Dose 30 ml .ROUTE .STK- MED ONE Stop: 10/01/17 11:36 Last Admin: 10/01/17 14:00 Dose: 18 ml Lidocaine/Sodium Bicarbonate (Buffered Lidocaine 1% In Ns 8.4%) 0.25 ml IDERM ONETIME PRN PRN Reason: Prior to IV Start Stop: 10/01/17 18:00 Last Admin: 10/01/17 09:24 Dose: 0.25 ml Midazolam HCl (Versed 1 Mg/Ml) Confirm Administered Dose 2 mg .ROUTE .STK-MED ONE Stop: 10/01/17 11:57 Midazolam HCl (Versed 1 Mg/Ml) Confirm Administered Dose 2 mg .ROUTE .STK-MED ONE Stop: 10/01/17 14:05 Morphine Sulfate (Morphine) 2 mg IVPUSH Q2H PRN PRN Reason: BRAKTHROUGH PAIN Non-Formulary Medication (Carisoprodol) 350 mg PO QID PRN PRN Reason: asdirected Ondansetron HCl (Zofran) Confirm Administered Dose 4 mg .ROUTE .STK-MED ONE Stop: 10/01/17 12:28 Oxycodone/Acetaminophen (Percocet 325-5 Mg) 1 - 2 tab PO Q4H PRN PRN Reason: APIN Propofol (Diprivan 20 Ml) Confirm Administered Dose 600 mg .ROUTE .STK-MED ONE Stop: 10/01/17 11:57 Propofol (Diprivan 20 Ml) Confirm Administered Dose 200 mg .ROUTE .STK-MED ONE Stop: 10/01/17 13:39 Propofol (Diprivan 20 Ml) Confirm Administered Dose 200 mg .ROUTE .STK-MED ONE Stop: 10/01/17 13:57 Propofol (Diprivan 20 Ml) Confirm Administered Dose 200 mg .ROUTE .STK-MED ONE Stop: 10/01/17 14:20 Ropivacaine (Naropin 0.5%) Confirm Administered Dose 30 ml .ROUTE .STK-MED ONE Stop: 10/01/17 07:52 Sodium Chloride (Saline Flush) 10 ml FLUSH ASDIRECTED PRN PRN Reason: Keep Vein Open Stop: 10/01/17 18:00 Tranexamic Acid (Cyklokapron) Confirm Administered Dose 1,000 mg .ROUTE .STK- MED ONE Stop: 10/01/17 11:36 Last Admin: 10/01/17 14:13 Dose: 1,000 mg Vancomycin HCl (Vancomycin) Confirm Administered Dose 1 gm .ROUTE .STK-MED ONE Stop: 10/01/17 11:36 Last Admin: 10/01/17 14:10 Dose: 1 gm - Exam Wound/Incisions: Dressing Dry and Intact General: Alert, Cooperative, No Acute Distress Lungs: Normal Respiratory Effort Extremities: Other (NVS intact for LLE.) - Problem List Review Problem List Initiated/Reviewed/Updated: Yes - My Orders Last 24 Hours: Active Orders 24 hr Category Date Time Status Patient Status [ADT] Routine ADT 10/01/17 11:22 Active Ambulate [RC] PER UNIT ROUTINE Care 10/01/17 11:22 Active Blood Glucose Check, Bedside [RC] ONETIME Care 10/02/17 06:44 Active Cooling Warming Measures [RC] ASDIRECTED Care 10/01/17 14:52 Inactive May Shower [RC] ASDIRECTED Care 10/01/17 11:22 Active Notify Provider Consults [RC] ASDIRECTED Care 10/01/17 11:24 Active Notify Provider [RC] ASDIRECTED Care 10/01/17 14:52 Active Oxygen Therapy [RC] PRN Care 10/01/17 11:22 Active Pulse Oximetry [RC] ASDIRECTED Care 10/01/17 14:52 Active RT Incentive Spirometry [RC] Q1HWA Care 10/01/17 11:21 Active Ready for Discharge [RC] PER UNIT ROUTINE Care 10/02/17 07:41 Active Up to Chair [RC] ASDIRECTED Care 10/01/17 11:22 Active Vital Signs [RC] Q15M Care 10/01/17 14:52 Inactive Vital Signs [RC] Q4HR Care 10/01/17 11:22 Active Consult to Physician [CONS] Routine Cons 10/01/17 11:22 Active OT Evaluation and Treatment [CONS] Routine Cons 10/01/17 11:21 Active PT Evaluation and Treatment [CONS] Routine Cons 10/01/17 11:21 Active ADA Diabetic [[place] [employer] Diet] [DIET Diet 10/01/17 Dinner Active ] Bisacodyl [Dulcolax] Med 10/01/17 11:22 Active 5 mg PO DAILY PRN Cyclobenzaprine [Flexeril] Med 10/01/17 11:21 Active 10 mg PO TID PRN Docusate Sodium [Colace] Med 10/01/17 21:00 Active 100 mg PO BID Empagliflozin [Jardiance] Med 10/02/17 09:00 Active 25 mg PO DAILY Furosemide [Lasix] Med 10/01/17 15:59 Active 20 mg PO DAILY PRN HYDROmorphone [Dilaudid] Med 10/01/17 20:17 Active 0.5 mg IVPUSH Q2H PRN HYDROmorphone [Dilaudid] Med 10/01/17 16:07 Active 2 mg PO Q4H PRN Ketorolac [Toradol] Med 10/01/17 11:21 Active 15 mg IVPUSH Q6H PRN Magnesium Hydroxide [Milk of Magnesia] Med 10/01/17 11:22 Active 30 ml PO BID PRN Naloxone [Narcan] Med 10/01/17 11:22 Active 0.1 mg IVPUSH Q5M PRN Omeprazole Med 10/01/17 17:00 Active 20 mg PO BIDAC Ondansetron [Zofran] Med 10/01/17 11:22 Active 4 mg IVPUSH Q6H PRN Rivaroxaban [Xarelto] Med 10/02/17 09:00 Active 10 mg PO DAILY Rosuvastatin [Crestor] Med 10/02/17 09:00 Active 20 mg PO DAILY Sennosides [Senna] Med 10/01/17 11:22 Active 8.6 mg PO BID PRN ceFAZolin [Ancef] 2 gm Med 10/01/17 20:00 Active Premix Bag 1 bag IV Q8H metFORMIN Med 10/02/17 09:00 Active 750 mg PO DAILY traMADol [Ultram] Med 10/01/17 15:59 Active 50 mg PO QID PRN Antiembolic Hose [OM.PC] Per Unit Routine Oth 10/01/17 11:23 Ordered Ice Therapy [OM.PC] Per Unit Routine Oth 10/01/17 11:22 Ordered Sequential Compression Device [OM.PC] Per Unit Routine Oth 10/01/17 11:21 Ordered Resuscitation Status Routine Resus Stat 10/01/17 11:22 Ordered Medication Orders Bisacodyl (Dulcolax) 5 mg PO DAILY PRN PRN Reason: Constipation Cyclobenzaprine HCl (Flexeril) 10 mg PO TID PRN PRN Reason: Spasms Last Admin: 10/01/17 22:54 Dose: 10 mg Docusate Sodium (Colace) 100 mg PO BID [facility] Last Admin: 10/01/17 20:34 Dose: 100 mg Furosemide (Lasix) 20 mg PO DAILY PRN PRN Reason: Edema Last Admin: 10/01/17 18:13 Dose: 20 mg Hydromorphone HCl (Dilaudid) 2 mg PO Q4H PRN PRN Reason: Pain Last Admin: 10/02/17 05:09 Dose: 2 mg Admin: 10/02/17 01:01 Dose: 2 mg Admin: 10/01/17 20:33 Dose: 2 mg Hydromorphone HCl (Dilaudid) 0.5 mg IVPUSH Q2H PRN PRN Reason: Pain Cefazolin Sodium/Dextrose 2 gm (/ Premix) 50 mls @ 100 mls/hr IV Q8H [facility] Stop: 10/02/17 12:29 Last Admin: 10/02/17 03:58 Dose: 100 mls/hr Infusion: 10/01/17 21:01 Dose: 100 mls/hr Admin: 10/01/17 20:31 Dose: 100 mls/hr Ketorolac Tromethamine (Toradol) 15 mg IVPUSH Q6H PRN PRN Reason: Pain Last Admin: 10/02/17 02:27 Dose: 15 mg Admin: 10/01/17 20:32 Dose: 15 mg Magnesium Hydroxide (Milk Of Magnesia) 30 ml PO BID PRN PRN Reason: Constipation Naloxone HCl (Narcan) 0.1 mg IVPUSH Q5M PRN PRN Reason: Oversedation (Empagliflozin [ Jardiance] 25 Mg) Own Med 25 mg PO DAILY CHANTE (Metformin 750 Mg Xr ()Own Med) 750 mg PO DAILY CHANTE Omeprazole (Omeprazole) 20 mg PO BIDAC CHANTE Last Admin: 10/02/17 05:10 Dose: 20 mg Admin: 10/01/17 18:33 Dose: Not Given Ondansetron HCl (Zofran) 4 mg IVPUSH Q6H PRN PRN Reason: Nausea/Vomiting Rivaroxaban (Xarelto) 10 mg PO DAILY [facility] Rosuvastatin Calcium (Crestor) 20 mg PO DAILY [facility] Senna (Senna) 8.6 mg PO BID PRN PRN Reason: Constipation Tramadol HCl (Ultram) 50 mg PO QID PRN PRN Reason: Pain Last Admin: 10/02/17 03:59 Dose: 50 mg Admin: 10/01/17 18:11 Dose: 50 mg - Assessment Assessment (Free Text/Narrative):: POD#1 - left TKA - Plan Plan (Free Text/Narrative):: 1. Hgb 13.1. 2. Medical management per Hospitalist service. 3. Xarelto, TEDs, frequent mobility. Family hx VTE and pt with hx breast cancer, GERD. 4. Discharge to home today. The pt's case was discussed with Dr. Lozano.
--- NOTE | 2017-10-02 07:59 | PCM.DCSUM1 ---
Discharge Summary - Hospital Course Brief History: Connie is a 62 yo female who underwent left TKA with Dr. Lozano on 10-01-2017. The procedure was completed under spinal anesthesia. The pt tolerated the procedure well and was admitted to the Medical-Surgical Unit. Medical management was provided by the Hospitalist service. The pt's Hospital course was uneventful. The pt's Hgb on POD#1 was 13.1. On POD#1, Xarelto 10mg PO daily was initiated for VTE prophylaxis. SCDs and TEDs were also ordered. A Mepilex dressing was placed at the incision site at the time of surgery and remained clean and dry. The pt participated in P.T. and O.T. and progressed well. The pt was allowed to WBAT and used a FWW for mobility. On POD#1, the pt was deemed appropriate to discharge to home with her son. - Discharge Data Discharge Date: 10/02/17 Discharge Disposition: Home, Self-Care 01 Condition: Good - Patient Summary/Data Consults: Consultations 10/01/17 11:21 OT Evaluation and Treatment [CONS] Routine PT Evaluation and Treatment [CONS] Routine 10/01/17 11:22 Consult to Physician [CONS] Routine - Patient Instructions Diet: Usual Diet as Tolerated Activity: Apply Ice, As Tolerated, Elevate Extremity, Full Weight Bearing Driving: Do Not Drive Showering/Bathing: May Shower Wound/Incision Care: Keep Operative Site/Wound Site Clean and Dry, Do NOT Change Dressing Notify Provider of: Fever, Increased Pain, Swelling and Redness, Drainage, Nausea and/or Vomiting Other/Special Instructions: Please get up and moving around every hour while awake. This helps to prevent blood clots. Please use your walker and have help with mobility as needed. Please take the Xarelto blood thinner medication daily as directed. At home, please complete the exercises that you learned during the Hospital stay. Schedule for physical therapy. Use the pain medication as needed. The medication may cause drowsiness and constipation. Contact your primary care provider for instructions if you are constipated. You may use a stool softener like docusate sodium or Colace 100mg twice daily and/or a laxative like Miralax daily for constipation. Increase your water and fiber intake while you are using the pain medication. Please try to wean from use of the pain medication as soon as able. Wear the ORION hose during the day and you may remove these at night. Elevate the limb to decrease swelling. Place ice to the area often. Place a towel between your skin and the blue pad. Use the incentive spirometer often. Take deep breaths throughout the day. Please keep the Mepilex dressing in place until follow-up. Notify the Clinic if the dressing becomes saturated. Increase your protein intake while you are healing. Please closely monitor your blood sugars and notify your primary care provider with abnormal values. Elevated blood sugars increases the risk of infection. Call the Clinic with questions or concerns - [phone]. - Discharge Plan Prescriptions/Med Rec: HYDROmorphone [Dilaudid] 2 mg PO Q4H PRN #60 tablet PRN Reason: Pain Rivaroxaban [Xarelto] 10 mg PO DAILY #40 tablet Home Medications: Home Meds Carisoprodol 350 mg PO QID PRN 04/14/16 [History] Empagliflozin [Jardiance] 25 mg PO DAILY 04/14/16 [History] Furosemide 20 mg PO DAILY PRN 04/14/16 [History] metFORMIN HCl [Metformin HCl ER] 750 mg PO DAILY 04/14/16 [History] traMADol [Ultram] 50 mg PO QID PRN 04/14/16 [History] Omeprazole Magnesium [Prilosec Otc] 20 mg PO BID 04/17/16 [History] Rosuvastatin [Crestor] 20 mg PO DAILY 04/17/16 [History] Bisacodyl [Dulcolax] 5 mg PO DAILY PRN tablet 10/01/17 [Rx] Docusate Sodium [Colace] 100 mg PO BID cap 10/01/17 [Rx] HYDROmorphone [Dilaudid] 2 mg PO Q4H PRN #60 tablet 10/01/17 [Rx] Magnesium Hydroxide [Milk of Magnesia] 30 ml PO BID PRN cup 10/01/17 [Rx] Rivaroxaban [Xarelto] 10 mg PO DAILY #40 tablet 10/01/17 [Rx] Sennosides [Senna] 8.6 mg PO BID PRN tablet 10/01/17 [Rx] Referrals: Maria Victoria Multani PA-C [Physician Cfo Controller] - - Patient Data Vitals - Most Recent: Last Vital Signs Temp 98.8 F 10/02/17 04:20 Pulse 69 10/02/17 04:20 Resp 18 10/02/17 04:20 BP 137/98 H 10/02/17 04:20 Pulse Ox 91 L 10/02/17 04:20 Weight - Most Recent: 239 lb I&O - Last 24 hours: Intake & Output 10/01/17 10/02/17 10/02/17 22:59 06:59 14:59 Intake Total 820 1400 Output Total 1975 Balance 820 -575 Lab Results - Last 24 hrs: Laboratory Results - last 24 hr 10/01/17 10/02/17 10/02/17 Range/Units 09:22 06:10 06:10 WBC 8.09 (3.98-10.04) K/mm3 RBC 4.13 (3.98-5.22) M/mm3 Hgb 13.1 (11.2-15.7) gm/L Hct 39.9 (34.1-44.9) % MCV 96.6 H (79.4-94.8) fl MCH 31.7 (25.6-32.2) pg MCHC 32.8 (32.2-35.5) g/dl RDW Std Deviation 48.0 H (36.4-46.3) fL Plt Count 135 L (182-369) K/mm3 MPV 11.3 (9.4-12.3) fl Sodium 139 (136-145) mEq/L Potassium 2.9 L (3.5-5.1) mEq/L Chloride 101 (98-107) mEq/L Carbon Dioxide 28 (21-32) mEq/L Anion Gap 12.9 (5-15) BUN 8 (7-18) mg/dL Creatinine 0.8 (0.55-1.02) mg/dL Est Cr Clr Drug Dosing 58.41 mL/min Estimated GFR (MDRD) > 60 (>60) mL/min BUN/Creatinine Ratio 10.0 L (14-18) Glucose 132 H (80-115) mg/dL POC Glucose 132 H (80-115) mg/dL Calcium 7.9 L (8.5-10.1) mg/dL Total Bilirubin 0.4 (0.2-1.0) mg/dL AST 23 (15-37) U/L ALT 28 (14-59) U/L Alkaline Phosphatase 71 (46-116) U/L Total Protein 6.2 L (6.4-8.2) g/dl Albumin 3.1 L (3.4-5.0) g/dl Globulin 3.1 gm/dL Albumin/Globulin Ratio 1.0 (1-2) 10/02/17 Range/Units 07:09 WBC (3.98-10.04) K/mm3 RBC (3.98-5.22) M/mm3 Hgb (11.2-15.7) gm/L Hct (34.1-44.9) % MCV (79.4-94.8) fl MCH (25.6-32.2) pg MCHC (32.2-35.5) g/dl RDW Std Deviation (36.4-46.3) fL Plt Count (182-369) K/mm3 MPV (9.4-12.3) fl Sodium (136-145) mEq/L Potassium (3.5-5.1) mEq/L Chloride (98-107) mEq/L Carbon Dioxide (21-32) mEq/L Anion Gap (5-15) BUN (7-18) mg/dL Creatinine (0.55-1.02) mg/dL Est Cr Clr Drug Dosing mL/min Estimated GFR (MDRD) (>60) mL/min BUN/Creatinine Ratio (14-18) Glucose (80-115) mg/dL POC Glucose 133 H (80-115) mg/dL Calcium (8.5-10.1) mg/dL Total Bilirubin (0.2-1.0) mg/dL AST (15-37) U/L ALT (14-59) U/L Alkaline Phosphatase (46-116) U/L Total Protein (6.4-8.2) g/dl Albumin (3.4-5.0) g/dl Globulin gm/dL Albumin/Globulin Ratio (1-2) Med Orders - Current: Current Medications Bisacodyl (Dulcolax) 5 mg PO DAILY PRN PRN Reason: Constipation Cyclobenzaprine HCl (Flexeril) 10 mg PO TID PRN PRN Reason: Spasms Last Admin: 10/01/17 22:54 Dose: 10 mg Docusate Sodium (Colace) 100 mg PO BID CHANTE Last Admin: 10/01/17 20:34 Dose: 100 mg Furosemide (Lasix) 20 mg PO DAILY PRN PRN Reason: Edema Last Admin: 10/01/17 18:13 Dose: 20 mg Hydromorphone HCl (Dilaudid) 2 mg PO Q4H PRN PRN Reason: Pain Last Admin: 10/02/17 05:09 Dose: 2 mg Hydromorphone HCl (Dilaudid) 0.5 mg IVPUSH Q2H PRN PRN Reason: Pain Cefazolin Sodium/Dextrose 2 gm (/ Premix) 50 mls @ 100 mls/hr IV Q8H CHANTE Stop: 10/02/17 12:29 Last Admin: 10/02/17 03:58 Dose: 100 mls/hr Ketorolac Tromethamine (Toradol) 15 mg IVPUSH Q6H PRN PRN Reason: Pain Last Admin: 10/02/17 02:27 Dose: 15 mg Magnesium Hydroxide (Milk Of Magnesia) 30 ml PO BID PRN PRN Reason: Constipation Naloxone HCl (Narcan) 0.1 mg IVPUSH Q5M PRN PRN Reason: Oversedation (Empagliflozin [ Jardiance] 25 Mg) Own Med 25 mg PO DAILY [facility] (Metformin 750 Mg Xr ()Own Med) 750 mg PO DAILY [facility] Omeprazole (Omeprazole) 20 mg PO BIDAC [facility] Last Admin: 10/02/17 05:10 Dose: 20 mg Ondansetron HCl (Zofran) 4 mg IVPUSH Q6H PRN PRN Reason: Nausea/Vomiting Rivaroxaban (Xarelto) 10 mg PO DAILY [facility] Rosuvastatin Calcium (Crestor) 20 mg PO DAILY [facility] Senna (Senna) 8.6 mg PO BID PRN PRN Reason: Constipation Tramadol HCl (Ultram) 50 mg PO QID PRN PRN Reason: Pain Last Admin: 10/02/17 03:59 Dose: 50 mg Discontinued Medications Bupivacaine HCl (Marcaine 0.25%) Confirm Administered Dose 30 ml .ROUTE .STK- MED ONE Stop: 10/01/17 11:36 Last Admin: 10/01/17 14:07 Dose: 30 ml Bupivacaine HCl (Sensorcaine-Mpf 0.75%) Confirm Administered Dose 30 ml .ROUTE .STK-MED ONE Stop: 10/01/17 12:42 Cefazolin Sodium (Ancef) Confirm Administered Dose 2 gm .ROUTE .ST-MED ONE Stop: 10/01/17 11:36 Cefazolin Sodium (Ancef) Confirm Administered Dose 2 gm .ROUTE .[facility]-MED ONE Stop: 10/01/17 11:57 Last Admin: 10/01/17 14:03 Dose: 2 gm Morphine Sulfate 8 mg/Epinephrine HCl 0.3 mg/Cefuroxime Sodium 750 mg/Ketorolac Tromethamine 30 mg/Sodium Chloride 27.9 ml 0 mg .XX ONETIME ONE Stop: 10/01/17 11:22 Last Admin: 10/01/17 16:42 Dose: Not Given Cyclobenzaprine HCl (Flexeril) 10 mg PO TID PRN PRN Reason: spasms Epinephrine HCl (Adrenalin) Confirm Administered Dose 1 mg .ROUTE .[facility]-MED ONE Stop: 10/01/17 07:52 Famotidine (Pepcid) 20 mg PO Q12H [facility] Fentanyl (Sublimaze) Confirm Administered Dose 100 mcg .ROUTE .[facility]-MED ONE Stop: 10/01/17 12:39 Fentanyl (Sublimaze) 50 mcg IVPUSH Q5M PRN PRN Reason: Pain Stop: 10/01/17 17:30 Hydromorphone HCl (Dilaudid) 0.5 mg IVPUSH ONETIME PRN PRN Reason: Pain Stop: 10/01/17 17:30 Hydromorphone HCl (Dilaudid) 0.2 mg IVPUSH Q2H PRN PRN Reason: Pain Last Admin: 10/01/17 18:26 Dose: 0.2 mg Hydromorphone HCl (Dilaudid) 0.5 mg IVPUSH Q2H CHANTE Hydromorphone HCl (Dilaudid) 2 mg PO Q4H PRN PRN Reason: Pain Lactated Ringer's (Ringers, Lactated) 1,000 mls @ 125 mls/hr IV ASDIRECTED [facility] Stop: 10/01/17 18:00 Last Admin: 10/01/17 12:28 Dose: 125 mls/hr Lidocaine HCl (Xylocaine-Mpf 1%) Confirm Administered Dose 4 mls @ as directed .ROUTE .[facility]-MED ONE Stop: 10/01/17 12:27 Lactated Ringer's (Ringers, Lactated) Confirm Administered Dose 1,000 mls @ as directed .ROUTE .STK-MED ONE Stop: 10/01/17 13:58 Iodine (Iodine 2% Mild Tincture) Confirm Administered Dose 30 ml .ROUTE .STK- MED ONE Stop: 10/01/17 11:36 Last Admin: 10/01/17 14:00 Dose: 18 ml Lidocaine/Sodium Bicarbonate (Buffered Lidocaine 1% In Ns 8.4%) 0.25 ml IDERM ONETIME PRN PRN Reason: Prior to IV Start Stop: 10/01/17 18:00 Last Admin: 10/01/17 09:24 Dose: 0.25 ml Midazolam HCl (Versed 1 Mg/Ml) Confirm Administered Dose 2 mg .ROUTE .STK-MED ONE Stop: 10/01/17 11:57 Midazolam HCl (Versed 1 Mg/Ml) Confirm Administered Dose 2 mg .ROUTE .STK-MED ONE Stop: 10/01/17 14:05 Morphine Sulfate (Morphine) 2 mg IVPUSH Q2H PRN PRN Reason: BRAKTHROUGH PAIN Non-Formulary Medication (Carisoprodol) 350 mg PO QID PRN PRN Reason: asdirected Ondansetron HCl (Zofran) Confirm Administered Dose 4 mg .ROUTE .STK-MED ONE Stop: 10/01/17 12:28 Oxycodone/Acetaminophen (Percocet 325-5 Mg) 1 - 2 tab PO Q4H PRN PRN Reason: APIN Propofol (Diprivan 20 Ml) Confirm Administered Dose 600 mg .ROUTE .STK-MED ONE Stop: 10/01/17 11:57 Propofol (Diprivan 20 Ml) Confirm Administered Dose 200 mg .ROUTE .STK-MED ONE Stop: 10/01/17 13:39 Propofol (Diprivan 20 Ml) Confirm Administered Dose 200 mg .ROUTE .STK-MED ONE Stop: 10/01/17 13:57 Propofol (Diprivan 20 Ml) Confirm Administered Dose 200 mg .ROUTE .STK-MED ONE Stop: 10/01/17 14:20 Ropivacaine (Naropin 0.5%) Confirm Administered Dose 30 ml .ROUTE .STK-MED ONE Stop: 10/01/17 07:52 Sodium Chloride (Saline Flush) 10 ml FLUSH ASDIRECTED PRN PRN Reason: Keep Vein Open Stop: 10/01/17 18:00 Tranexamic Acid (Cyklokapron) Confirm Administered Dose 1,000 mg .ROUTE .STK- MED ONE Stop: 10/01/17 11:36 Last Admin: 10/01/17 14:13 Dose: 1,000 mg Vancomycin HCl (Vancomycin) Confirm Administered Dose 1 gm .ROUTE .STK-MED ONE Stop: 10/01/17 11:36 Last Admin: 10/01/17 14:10 Dose: 1 gm
[2017-10-02] MEDS: Docusate Sodium 100 MG Cap PO SCH (08:28)
[2017-10-02] MEDS ORDERED: Rivaroxaban 10 MG Tab PO SCH (09:00)
[2017-10-02] MEDS ORDERED: Rosuvastatin 10 MG Tab PO SCH (09:00)
--- NOTE | 2017-10-02 10:15 | PCM48HPAN ---
Post Anesthesia Note - EVALUATION WITHIN 48HRS OF ANESTHETIC Vital Signs in Normal Range: Yes Patient Participated in Evaluation: Yes Respiratory Function Stable: Yes Airway Patent: Yes Cardiovascular Function Stable: Yes Hydration Status Stable: Yes Pain Control Satisfactory: Yes Nausea and Vomiting Control Satisfactory: Yes Mental Status Recovered: Yes - COMMENTS/OBSERVATIONS Free Text/Narrative:: Patient denied any anesthetic complications. patient complained of pain all night to the point where she was unable to sleep. She did not rest well.
[2017-10-02] MEDS: Cyclobenzaprine 10 MG Tab PO PRN (11:06)
[2017-10-02 11:52] VITALS: BP 132/55
--- NOTE | 2017-10-08 07:17 | PCM.OPNOTE ---
- General Post-Op/Procedure Note Date of Surgery/Procedure: 10/01/17 Operative Procedure(s): left total knee arthroplasty Pre Op Diagnosis: left knee osteoarthrosis Post-Op Diagnosis: Same Anesthesia Technique: Local, MAC, Spinal Primary Surgeon: Adam Lozano Anesthesia Provider: Amadou Garcia Wood Boatbuilder Apprentice: Maria Victoria Multani Wood Boatbuilder Apprentice: Kelli Richey in mLs: 10 Complications: None Condition: Good Free Text/Narrative:: size 5/5 9mm 32x10
--- NOTE | 2017-10-09 11:07 | OR ---
DATE OF OPERATION: 10/01/2017 SURGEON: Adam Lozano MD OPERATION PERFORMED: Left total knee arthroplasty. PREOPERATIVE DIAGNOSIS: Left knee osteoarthrosis. POSTOPERATIVE DIAGNOSIS: Left knee osteoarthrosis. ANESTHESIA: Local MAC with spinal. ANESTHESIA PROVIDER: Amadou Garcia CRNA. CHIEF LOCK TENDER OPERATOR: 1. Maria Victoria Multani PA-C. 2. Kelli Richey LPN. ESTIMATED BLOOD LOSS: 10 mL, COMPLICATIONS: None. CONDITION: Stable. IMPLANTS: 1. [place] size 5 Press-Fit CR femur. 2. Bj size 5 Press-Fit tibial base plate. 3. Bj size 5 9 mm CS polyethylene insert. 4. Bj size 32 x 10 mm Press-Fit asymmetric patella. DESCRIPTION OF PROCEDURE: The patient was identified in the preop holding area. Proper site was marked and identified by the surgeon. The patient was taken back to the operating theater. After adequate anesthesia, the patient's left lower extremity had a nonsterile tourniquet applied and it was then sterilely prepped and draped in the usual sterile fashion. OR timeout was performed. The patient received 2 g IV Ancef. At this time, left lower extremity was exsanguinated. Tourniquet was insufflated to 300 mmHg. Standard medial parapatellar incision was made. Medial parapatellar arthrotomy was created. Deep fibers of the MCL were raised and anterior fat pad was resected. At this time, attention was turned to the patella. Patella measured 24, it was resected to a 14 for 32 x 10 mm patella. Drill holes were then drilled and found to be in adequate position. The drill was then drilled in the distal femur and the intramedullary distal femoral cutting guide was then placed. 8 mm was taken off the distal femur and was found to be an adequate resection. Sizing guide was placed. It was found to be a [place] size 5 Press-Fit CR femur that was shown on the implant record at the beginning of this dictation. The drill holes were drilled for the epicondylar axis using Whitesides line and epicondyles as reference. At this time, the 4-in - 1 cutting block was placed. An anterior posterior and anterior and posterior chamfer cuts were then completed. The correct size box cut was then placed and the box cut was completed and found to be an adequate resection. Attention was turned to the tibia. The posterior medial lateral retractors were placed. The extramedullary tibial guide was placed. It was placed in the old footprint of the ACL. It was aligned with the center of the ankle and 0 degrees of slope, 9 mm was then resected off the unaffected lateral side. There was found to be an acceptable reduction. At this time, posterior osteophytes were removed along with medial and lateral meniscus. A trial implant was placed with a correct sized tibia that was mentioned at the beginning of the dictation. A Bj size 5 9 mm CS polyethylene was then placed. The patient's knee was brought through range of motion. The patella was tracking centrally and was stable to varus and valgus stress. Alignment was found to be roughly at 0 degrees. The tibia was stamped and drilled in proper rotation. The universal tibial base plate was press-fit in place. Next, the Bj size 5 Press-Fit CR femur was press-fit into place and the [place] size 5 9 mm CS polyethylene was placed. The patient's knee was brought into full extension. The patella was then press-fit in place at this time. Tourniquet was deflated. One liter dilute Betadine solution was irrigated through the knee along with 3 L of pulse lavage irrigation with Ancef. Periarticular injection was then completed. The patient's knee was brought through a range of motion. Knee was found to be stable to varus valgus stress, the patella was tracking centrally with full range of motion. At this time, a #2 barbed suture was used for closure of the medial parapatellar arthrotomy. Topical tranexamic acid was placed. 2-0 Vicryl was used subcutaneously, a running 3-0 Monocryl was used subcuticularly. The patient tolerated the procedure well and was sent to the PACU in stable condition. MMJOHN /[id number] SAVI
== END 2017-10-02 13:05 | disposition home or self-care (01) | DRG 302 ==
LOC: UNDOADMIN 10-01 08:53 → JD.MS 10-01 08:53 → EDSTATUS 10-01 13:15
PROVIDERS: ADMIT Orthopaedic Surgery; ATTEND Orthopaedic Surgery
PROC: 0SRD0J9 Replacement of Left Knee Joint with Synthetic Substitute, Cemented, Open Approach (ICD-10-PCS; principal; 2017-10-01)
PROC: 3E0T3BZ Introduction of Anesthetic Agent into Peripheral Nerves and Plexi, Percutaneous Approach (ICD-10-PCS; 2017-10-01)
DX: M17.12 Unilateral primary osteoarthritis, left knee (principal); E66.01 Morbid (severe) obesity due to excess calories; I10 Essential (primary) hypertension; M25.762 Osteophyte, left knee; E78.5 Hyperlipidemia, unspecified; M79.7 Fibromyalgia; E11.9 Type 2 diabetes mellitus without complications; H54.7 Unspecified visual loss; E78.00 Pure hypercholesterolemia, unspecified; K21.9 Gastro-esophageal reflux disease without esophagitis; Z85.3 Personal history of malignant neoplasm of breast; Z90.10 Acquired absence of unspecified breast and nipple; Z90.710 Acquired absence of both cervix and uterus; Z88.6 Allergy status to analgesic agent; Z88.5 Allergy status to narcotic agent; Z88.2 Allergy status to sulfonamides; Z79.01 Long term (current) use of anticoagulants; Z79.84 Long term (current) use of oral hypoglycemic drugs; Z79.899 Other long term (current) drug therapy; Z96.649 Presence of unspecified artificial hip joint; Z87.891 Personal history of nicotine dependence
CPT/HCPCS: 01402; 36415; 64450; 73560-26-LT; 73560-LT; 80053; 82962; 85027; 87641; 97110-GP; 97116-GP; 97161-GP; A9270-GY; C1713; C1776; J0171; J0690; J0697; J1170; J1885; J2001; J2250; J2270; J2405; J2704; J2795; J3010; J3370; J3490; J7120

== ENCOUNTER 2019-04-16 09:36 | Day surgery (SDC) | payer BC ==
[~2019-04-16 09:36] MED LIST: Lactated Ringers 1,000 ML IV SCH; Lidocaine 1%/Sod Bicarbonate in NS 8.4% 1 ML Syringe IDERM PRN; Sodium Chloride 0.9% 10 ML Syringe FLUSH PRN
--- NOTE | 2019-04-16 10:10 | PCM.PREANE ---
Preanesthetic Assessment - Procedure Proposed Procedure: Egd colonoscopy - Anesthesia/Transfusion/Family Hx Anesthesia History: Prior Anesthesia Without Reaction Family History of Anesthesia Reaction: No Transfusion History: No Prior Transfusion(s) Type of Transfusion Reactions: Reports: Unknown - Review of Systems General: Fever (2 weeks ago- better now) Pulmonary: No Symptoms Cardiovascular: No Symptoms Gastrointestinal: No Symptoms Neurological: No Symptoms Other: Reports: Diabetes - Physical Assessment NPO Status Date: 04/16/19 NPO Status Time: 01:00 Vital Signs: Last Vital Signs Temp 98.5 F 04/16/19 09:40 Pulse 83 04/16/19 09:40 Resp 16 04/16/19 09:40 BP 127/68 04/16/19 09:40 Pulse Ox 94 L 04/16/19 09:40 Height: 5 ft 2 in Weight: 115.212 kg ASA Class: 3 Mental Status: Alert & Oriented x3 Airway Class: Mallampati = 1 Dentition: Reports: Dentures (top plate) Thyro-Mental Finger Breadths: 3 Mouth Opening Finger Breadths: 3 ROM/Head Extension: Full Lungs: Clear to Auscultation, Normal Respiratory Effort Cardiovascular: Regular Rate, Regular Rhythm - Allergies Allergies/Adverse Reactions: Allergies Allergy/AdvReac Type Severity Reaction Status Date / Time codeine AdvReac Nausea and Verified 04/15/19 13:03 Vomiting hydrocodone AdvReac Nausea and Verified 04/15/19 13:03 Vomiting morphine AdvReac Nausea and Verified 04/15/19 13:03 Vomiting oxycodone AdvReac Nausea and Verified 04/15/19 13:03 Vomiting Sulfa (Sulfonamide AdvReac Nausea and Verified 04/15/19 13:03 Antibiotics) Vomiting - Blood Blood Available: No - Acknowledgements Anesthesia Type Planned: MAC Pt an Appropriate Candidate for the Planned Anesthesia: Yes Alternatives and Risks of Anesthesia Discussed w Pt/Guardian: Yes Pt/Guardian Understands and Agrees with Anesthesia Plan: Yes PreAnesthesia Questionnaire HEENT History: Reports: Impaired Vision Other HEENT History: Upper denture, glasses Cardiovascular History: Reports: High Cholesterol, Hypertension Respiratory History: Reports: Other (See Below) Other Respiratory History: URI Gastrointestinal History: Reports: GERD, Helicobacter Pylori, Other (See Below) Other Gastrointestinal History: elevated LFTs Genitourinary History: Reports: None [employer] History: Reports: Other (See Below) Other OB/BYN History: malignat neoplasm of breast Musculoskeletal History: Reports: Arthritis, Fibromyalgia, Gout, Other (See Below) Other Musculoskeletal History: sciatica Neurological History: Reports: None Psychiatric History: Reports: None Endocrine/Metabolic History: Reports: Diabetes, Type II, Other (See Below) Other Endocrine/Metabolic History: metabolic x syndrome Hematologic History: Reports: Other (See Below) Other Hematologic History: hypokalemia Immunologic History: Reports: None Oncologic (Cancer) History: Reports: Breast, Other (See Below) Other Oncologic History: priest syndrome Dermatologic History: Other Dermatologic History: rosacea - Infectious Disease History Infectious Disease History: Reports: None - Past Surgical History Head Surgeries/Procedures: Reports: None Cardiovascular Surgical History: Reports: None Respiratory Surgical History: Reports: None GI Surgical History: Reports: Colonoscopy Female Surgical History: Reports: Breast Biopsy, Breast Implant, Breast Reconstruction, Hysterectomy, Oophorectomy Endocrine Surgical History: Reports: None Neurological Surgical History: Reports: None Musculoskeletal Surgical History: Reports: Hip Replacement, Knee Replacement Oncologic Surgical History: Reports: Mastectomy Dermatological Surgical History: Reports: None - SUBSTANCE USE Smoking Status *Q: Former Smoker (quit 2006) Tobacco Use Within Last Twelve Months: No Second Hand Smoke Exposure: No Days Per Week of Alcohol Use: 7 Number of Drinks Per Day: 3 Total Drinks Per Week: 21 Date of Last Drink: 04/13/19 Recreational Drug Use History: Yes Recreational Drug Type: Reports: Marijuana/Hashish - HOME MEDS Home Medications: Home Meds Carisoprodol 350 mg PO QID PRN 04/14/16 [History] Furosemide 20 mg PO DAILY PRN 04/14/16 [History] traMADol [Ultram] 50 mg PO QID PRN 04/14/16 [History] Rosuvastatin [Crestor] 20 mg PO DAILY 04/17/16 [History] Aspirin [Halfprin] 81 mg PO DAILY 04/15/19 [History] Cholecalciferol (Vitamin D3) [Vitamin D3] 2,000 unit PO DAILY 04/15/19 [History] Ibuprofen [Motrin] 800 mg PO TID PRN 04/15/19 [History] metFORMIN [Glucophage XR] 2,000 mg PO DAILY 04/15/19 [History] - CURRENT (IN HOUSE) MEDS Current Meds: Current Medications Lactated Ringer's (Ringers, Lactated) 1,000 mls @ 125 mls/hr IV ASDIRECTED [facility]ANTE Stop: 04/16/19 23:00 Lidocaine/Sodium Bicarbonate (Buffered Lidocaine 1% In Ns 8.4%) 0.25 ml IDERM ONETIME PRN PRN Reason: Prior to IV Start Stop: 04/16/19 18:00 Sodium Chloride (Saline Flush) 10 ml FLUSH ASDIRECTED PRN PRN Reason: Keep Vein Open Stop: 04/16/19 18:00
[2019-04-16] MEDS ORDERED: Propofol 200 MG/20 ML SDV ONE ×2 (10:39→11:23)
[2019-04-16] MEDS ORDERED: Lidocaine 1% 8 ML ONE (10:41)
--- NOTE | 2019-04-16 11:48 | PCM.OPNOTE ---
- General Post-Op/Procedure Note Date of Surgery/Procedure: 04/16/19 Operative Procedure(s): EGD and colonoscopy Findings: 1. Gastritis 2. Hiatal hernia 3. Bile reflux 4. 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 Duodenum biopsy 2. Gastric antrum biopsy 3. Ascending colon polyp 4. Sigmoid colon polyp 2 Fluid Replacement, Intraop: 1,000 Output, Urine Amount: 0 EBL in mLs: 0 Complications: None apparent Condition: Good
--- NOTE | 2019-04-16 11:50 | PCM48HPAN ---
Post Anesthesia Note - EVALUATION WITHIN 48HRS OF ANESTHETIC Vital Signs in Normal Range: Yes Patient Participated in Evaluation: Yes Respiratory Function Stable: Yes Airway Patent: Yes Cardiovascular Function Stable: Yes Hydration Status Stable: Yes Pain Control Satisfactory: Yes Nausea and Vomiting Control Satisfactory: Yes Mental Status Recovered: Yes Vital Signs: Last Vital Signs Temp 97.4 F 04/16/19 11:41 Pulse 77 04/16/19 11:41 Resp 16 04/16/19 11:41 BP 130/80 04/16/19 11:41 Pulse Ox 97 04/16/19 11:41
--- NOTE | 2019-04-16 11:50 | PCM.PRNOTE ---
- Free Text/Narrative Note: Operative Report Date of Procedure: April 16, 2019 Pre Op Diagnosis: Jasso syndrome Post-Op Diagnosis: Same Operative Procedures: 1. EGD with biopsy 2. Colonoscopy to the cecum with polypectomy Primary Surgeon: Brittni Phillips MD Anesthesia Provider: Jatinder Oconnell CRNA Anesthesia Technique: MAC IV Fluid Replacement, Intraop: 1000cc crystalloid Output, Urine Amount: 0cc EBL in mLs: 0cc Findings: 1. Gastritis 2. Hiatal hernia 3. Bile reflux 4. Colon polyps Specimens: 1. Duodenum biopsy 2. Gastric antrum biopsy 3. Ascending colon polyp 4. Sigmoid colon polyp 2 Drain/Tubes: None Indication: The patient is a 63-year-old lady who presented to the clinic with personal history of Jasso syndrome. The patient reported no current symptoms. The patient was consented for a high risk surveillance EGD and colonoscopy. Risks of bleeding, and perforation were discussed, and the patient agreed to the risks and wished to proceed. Description of the procedure: The patient was taken back to the endoscopy suite, and placed in the left lateral decubitus position. A bite block was placed. The patient was sedated with MAC anesthesia. The Olympus video endoscope was inserted into the oropharynx and guided under direct vision into the esophagus, stomach, and duodenum. The gastric antrum was inspected and cold biopsy forceps were used to take tissue samples for H. pylori. The duodenal bulb and second portion of the duodenum were viewed and there was some evidence of duodenitis in the second portion of the duodenum. Biopsies were taken with cold biopsy forceps and the second portion of the duodenum The scope was withdrawn to the stomach and retroflexed. There was bilious fluid seen in the body of the stomach which was suctioned. No erosions or ulcers were noted. The scope was withdrawn to the esophagus. A this point we noted a sliding hiatal hernia. No Barretts esophagus changes were noted. The endoscope was then withdrawn Next, anorectal examination was performed. No lesions, masses or hemorrhoids were noted externally or on palpation. The scope was placed into the rectum and advanced to cecum. Upon reaching the cecum, and the patients cecum was entered. There was minimal tortuosity of the colon. The ileocecal valve was well visualized and the appendiceal orifice identified. At this point, the scope was slowly withdrawn, paying attention to the mucosa. The patient had excellent bowel prep, greater than 95 % of the mucosa was visible. Minimal diverticulosis was noted with a few small-mouthed diverticula scattered in the descending and sigmoid colon. 3 flat polyps were seen in the colon; one was located in the ascending colon and the remaining 2 in the sigmoid colon. These were each measuring 2-3 mm, each was removed using a cold biopsy forceps. In the rectum, scope was retroflexed and some hemorrhoidal tissue was noted. The scope was placed back in the lumen and excess air was aspirated. The scope was removed. The patient tolerated the procedure very well. Complications: None apparent Condition: The patient was transported to PACU in stable condition. Brittni Phillips MD General Surgery
[2019-04-16 13:15] VITALS: BP 139/81; PULSE 81
== END 2019-04-16 12:21 | disposition home or self-care (01) ==
LOC: JD.SDS 09:36
PROVIDERS: ATTEND Surgery
DX: Z12.11 Encounter for screening for malignant neoplasm of colon (principal); D12.2 Benign neoplasm of ascending colon; D12.5 Benign neoplasm of sigmoid colon; K29.50 Unspecified chronic gastritis without bleeding; K63.5 Polyp of colon; K44.9 Diaphragmatic hernia without obstruction or gangrene; Q43.8 Other specified congenital malformations of intestine; K57.30 Diverticulosis of large intestine without perforation or abscess without bleeding; K64.9 Unspecified hemorrhoids; K21.9 Gastro-esophageal reflux disease without esophagitis; E78.00 Pure hypercholesterolemia, unspecified; E11.9 Type 2 diabetes mellitus without complications; I10 Essential (primary) hypertension; M19.90 Unspecified osteoarthritis, unspecified site; M10.9 Gout, unspecified; Z15.09 Genetic susceptibility to other malignant neoplasm; Z80.0 Family history of malignant neoplasm of digestive organs; Z88.5 Allergy status to narcotic agent; Z87.891 Personal history of nicotine dependence; Z88.2 Allergy status to sulfonamides; Z79.899 Other long term (current) drug therapy; Z79.84 Long term (current) use of oral hypoglycemic drugs; Z79.1 Long term (current) use of non-steroidal anti-inflammatories (NSAID); Z79.2 Long term (current) use of antibiotics
CPT/HCPCS: 43239; 45380; 82962; J2001; J2704; J7120; 00813

== ENCOUNTER 2020-04-30 22:28 | Emergency (ER) | payer BC ==
[2020-04-30 22:45] VITALS: BP 154/76; PULSE 100
--- NOTE | 2020-04-30 23:10 | EDM.PDOC ---
ED HPI GENERAL MEDICAL PROBLEM - General Chief Complaint: Lower Extremity Injury/Pain Stated Complaint: POSS BLOOD CLOT IN LEFT LEG Time Seen by Provider: 04/30/20 22:45 Source of Information: Reports: Patient History Limitations: Reports: No Limitations - History of Present Illness INITIAL COMMENTS - FREE TEXT/NARRATIVE: This is a 64-year-old female. Onset of left lower extremity pain but no redness. 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 And there is some slight swelling. The area in question is on the medial side lower leg just above the ankle. She does have some varicose veins superficially. She has no history of having DVT but her daughter has and so the daughter has been telling her to watch out and so she comes to the ER because it is been heavy on her mind. She denies any shortness of breath she denies any fever or chills no cough or congestion. Left Lower Leg Pain Score (Numeric/FACES): 3 - Related Data Allergies Allergy/AdvReac Type Severity Reaction Status Date / Time codeine AdvReac Nausea and Verified 04/30/20 22:42 Vomiting hydrocodone AdvReac Nausea and Verified 04/30/20 22:42 Vomiting morphine AdvReac Nausea and Verified 04/30/20 22:42 Vomiting oxycodone AdvReac Nausea and Verified 04/30/20 22:42 Vomiting Sulfa (Sulfonamide AdvReac Nausea and Verified 04/30/20 22:42 Antibiotics) Vomiting Home Meds: Home Meds Carisoprodol 350 mg PO QID PRN 04/14/16 [History] Furosemide 20 mg PO DAILY PRN 04/14/16 [History] traMADol [Ultram] 50 mg PO QID PRN 04/14/16 [History] Rosuvastatin [Crestor] 20 mg PO DAILY 04/17/16 [History] Aspirin [Halfprin] 81 mg PO DAILY 04/15/19 [History] Cholecalciferol (Vitamin D3) [Vitamin D3] 2,000 unit PO DAILY 04/15/19 [History] Ibuprofen [Motrin] 800 mg PO TID PRN 04/15/19 [History] metFORMIN [Glucophage XR] 2,000 mg PO DAILY 04/15/19 [History] Past Medical History HEENT History: Reports: Impaired Vision Other HEENT History: Upper denture, glasses Cardiovascular History: Reports: High Cholesterol, Hypertension Respiratory History: Reports: Other (See Below) Other Respiratory History: URI Gastrointestinal History: Reports: GERD, Helicobacter Pylori, Other (See Below) Other Gastrointestinal History: elevated LFTs Genitourinary History: Reports: None MANAGEMENT LECTURER History: Reports: Other (See Below) Other MANAGEMENT LECTURER History: malignat neoplasm of breast Musculoskeletal History: Reports: Arthritis, Fibromyalgia, Gout, Other (See Below) Other Musculoskeletal History: sciatica Neurological History: Reports: None Psychiatric History: Reports: None Endocrine/Metabolic History: Reports: Diabetes, Type II, Other (See Below) Other Endocrine/Metabolic History: metabolic x syndrome Hematologic History: Reports: Other (See Below) Other Hematologic History: hypokalemia Immunologic History: Reports: None Oncologic (Cancer) History: Reports: Breast, Other (See Below) Other Oncologic History: priest syndrome Dermatologic History: Other Dermatologic History: rosacea - Infectious Disease History Infectious Disease History: Reports: None - Past Surgical History Head Surgeries/Procedures: Reports: None Cardiovascular Surgical History: Reports: None Respiratory Surgical History: Reports: None GI Surgical History: Reports: Colonoscopy Female Surgical History: Reports: Breast Biopsy, Breast Implant, Breast Rec onstruction, Hysterectomy, Oophorectomy Endocrine Surgical History: Reports: None Neurological Surgical History: Reports: None Musculoskeletal Surgical History: Reports: Hip Replacement, Knee Replacement Oncologic Surgical History: Reports: Mastectomy Dermatological Surgical History: Reports: None Social & Family History - Family History Family Medical History: No Pertinent Family History - Caffeine Use Caffeine Use: Reports: Coffee, Tea Review of Systems - Review of Systems Review Of Systems: See Below Constitutional: Denies: Chills, Fever Eyes: Reports: No Symptoms Ears: Reports: No Symptoms Nose: Reports: No Symptoms Mouth/Throat: Reports: No Symptoms Respiratory: Denies: Shortness of Breath, Cough Cardiovascular: Denies: Chest Pain GI/Abdominal: Denies: Abdominal Pain Genitourinary: Reports: No Symptoms Musculoskeletal: Reports: Leg Pain Skin: Denies: Erythema Neurological: Reports: No Symptoms Psychiatric: Reports: No Symptoms ED EXAM, GENERAL - Physical Exam Exam: See Below Exam Limited By: No Limitations General Appearance: Alert, WD/WN, No Apparent Distress Eye Exam: Bilateral Eye: Normal Inspection Ears: Normal External Exam Nose: Normal Inspection Throat/Mouth: Normal Inspection, Normal Lips, Normal Voice, No Airway Compromise Head: Normocephalic Neck: Supple Respiratory/Chest: No Respiratory Distress Peripheral Pulses: 1+: Dorsalis Pedis (L), Dorsalis Pedis (R) Back Exam: Full Range of Motion Extremities: Normal Inspection, Normal Range of Motion, Other (On the medial side of the left lower leg just above the ankle she has a hand size patch area that she complains of pain the does have some superficial varicose veins noted but they do not appear to be inflamed there is maybe some slight swelling compared to the right lower extremity. There is no warmth differential when you run your hand down the leg to that area. She walks with no difficulty.) Neurological: Alert, Oriented Psychiatric: Normal Affect, Normal Mood Skin Exam: Warm, Dry Course - Vital Signs Last Recorded V/S: Last Vital Signs Temp 98.0 F 04/30/20 22:42 Pulse 100 04/30/20 22:42 Resp 18 04/30/20 22:42 BP 154/76 H 04/30/20 22:42 Pulse Ox 98 04/30/20 22:42 - Orders/Labs/Meds Orders: Active Orders 24 hr Category Date Time Status VL Duplex Lwr Ext Veins Ltd Lt [US] Stat Exams 04/30/20 22:58 Taken - Radiology Interpretation Free Text/Narrative:: Ultrasound of the left lower extremity does not show any acute DVT Departure - Departure Time of Disposition: 00:46 Disposition: Home, Self-Care 01 Condition: Good Clinical Impression: Lower extremity pain, medial Qualifiers: Laterality: left Qualified Code(s): M79.605 - Pain in left leg Varicose veins of both lower extremities Qualifiers: Varicose vein complication: unspecified Qualified Code(s): I83.93 - Asymptomatic varicose veins of bilateral lower extremities - Discharge Information *PRESCRIPTION DRUG MONITORING PROGRAM REVIEWED*: Not Applicable *COPY OF PRESCRIPTION DRUG MONITORING REPORT IN PATIENT KARLIE: Not Applicable Referrals: Mitzi Marte NP [Primary Care Provider] - Forms: ED Department Discharge Additional Instructions: May use heat to the area that is sore, take Tylenol or ibuprofen as needed for the soreness if you are able, follow-up with your family doctor this coming week for recheck, if you notice a change in the symptoms such as marked increased swelling or redness be reevaluated, return to the ER if needed Sepsis Event Note (ED) - Evaluation Sepsis Screening Result: No Definite Risk - Focused Exam Vital Signs: Vital Signs Temp Pulse Resp BP Pulse Ox 04/30/20 22:42 98.0 F 100 18 154/76 H 98 - My Orders Last 24 Hours: My Active Orders 04/30/20 22:58 VL Duplex Lwr Ext Veins Ltd Lt [US] Stat - Assessment/Plan Last 24 Hours: My Active Orders 04/30/20 22:58 VL Duplex Lwr Ext Veins Ltd Lt [US] Stat
--- NOTE | 2020-05-01 10:13 | US ---
Left lower extremity deep venous ultrasound: Duplex and color Doppler evaluation was obtained of the left common femoral, proximal greater saphenous, superficial femoral, popliteal, posterior tibial and peroneal veins. Right common femoral vein was also evaluated. Comparison: No prior venous imaging is available. Findings: Normal phasic flow, augmentation and compression is seen. Additional imaging of the posterior left calf shows no discrete soft tissue abnormality. Impression: 1. No findings of deep venous thrombosis within the left lower extremity or within the right common femoral vein. 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
== END 2020-05-01 00:52 | disposition home or self-care (01) ==
LOC: JD.ED 22:28
DX: I83.93 Asymptomatic varicose veins of bilateral lower extremities (principal); E78.00 Pure hypercholesterolemia, unspecified; I10 Essential (primary) hypertension; M10.9 Gout, unspecified; E11.9 Type 2 diabetes mellitus without complications; Z88.5 Allergy status to narcotic agent; Z88.2 Allergy status to sulfonamides; Z79.82 Long term (current) use of aspirin; Z79.899 Other long term (current) drug therapy
CPT/HCPCS: 93971-26-LT; 93971-LT; 99283; 99283-25

== ENCOUNTER 2021-07-13 08:12 | Day surgery (SDC) | payer BC, OTHER ==
[~2021-07-13 08:12] MED LIST changes: +Sodium Chloride 0.9% 10 ML Syringe FLUSH SCH
[2021-07-13] MEDS ORDERED: Propofol 200 MG/20 ML SDV ONE ×4 (08:47→10:14)
[2021-07-13] MEDS ORDERED: Lidocaine 1% 4 ML ONE (08:48)
[2021-07-13] MEDS ORDERED: Midazolam 1 MG/ML 2 ML SDV ONE (09:31)
[2021-07-13 12:52] VITALS: BP 116/64; PULSE 85
== END 2021-07-13 11:13 | disposition home or self-care (01) ==
LOC: JD.SDS 08:12
PROVIDERS: ATTEND Surgery
DX: Z12.11 Encounter for screening for malignant neoplasm of colon (principal); D12.3 Benign neoplasm of transverse colon; K63.3 Ulcer of intestine; Z15.09 Genetic susceptibility to other malignant neoplasm; K57.30 Diverticulosis of large intestine without perforation or abscess without bleeding; K44.9 Diaphragmatic hernia without obstruction or gangrene; K29.70 Gastritis, unspecified, without bleeding; K21.9 Gastro-esophageal reflux disease without esophagitis; E11.9 Type 2 diabetes mellitus without complications; E78.00 Pure hypercholesterolemia, unspecified; G47.30 Sleep apnea, unspecified; Z98.890 Other specified postprocedural states; Z79.899 Other long term (current) drug therapy; Z79.84 Long term (current) use of oral hypoglycemic drugs; Z79.82 Long term (current) use of aspirin; Z88.5 Allergy status to narcotic agent; Z88.8 Allergy status to other drugs, medicaments and biological substances; Z87.891 Personal history of nicotine dependence
CPT/HCPCS: 43239; 45380; 82947; J2250; J2704; J7120; 00813

== ENCOUNTER 2022-03-05 19:08 | Emergency (ER) | payer OTHER ==
[2022-03-05] MEDS ORDERED: Ketorolac 60 MG/2 ML SDV IM ONE (22:41)
[2022-03-05 23:22] VITALS: BP 136/72; PULSE 84
== END 2022-03-05 23:22 | disposition home or self-care (01) ==
LOC: JD.ED 19:08
DX: M10.9 Gout, unspecified (principal); E78.00 Pure hypercholesterolemia, unspecified; E11.9 Type 2 diabetes mellitus without complications; Z88.5 Allergy status to narcotic agent; Z88.6 Allergy status to analgesic agent; Z88.2 Allergy status to sulfonamides; Z79.899 Other long term (current) drug therapy; Z79.82 Long term (current) use of aspirin; Z79.84 Long term (current) use of oral hypoglycemic drugs
CPT/HCPCS: 36415; 84550; 96372; 99283; J1885

== ENCOUNTER 2022-07-12 21:32 | Emergency (ER) | payer MEDICARE, OTHER ==
[2022-07-12 23:23] VITALS: BP 133/97; PULSE 80
== END 2022-07-12 23:08 | disposition home or self-care (01) ==
LOC: JD.ED 21:32
DX: S22.42XA Multiple fractures of ribs, left side, initial encounter for closed fracture (principal); E78.00 Pure hypercholesterolemia, unspecified; M10.9 Gout, unspecified; E11.9 Type 2 diabetes mellitus without complications; E66.9 Obesity, unspecified; Z68.42 Body mass index [BMI] 45.0-49.9, adult; Z88.5 Allergy status to narcotic agent; Z88.2 Allergy status to sulfonamides; Z79.82 Long term (current) use of aspirin; Z79.84 Long term (current) use of oral hypoglycemic drugs; Z79.899 Other long term (current) drug therapy; W18.30XA Fall on same level, unspecified, initial encounter
CPT/HCPCS: 71101-26-LT; 71101-LT; 99283; 99284

== ENCOUNTER 2023-09-18 18:43 | Emergency (ER) | payer OTHER ==
[2023-09-18 20:04] LABS: INR 1.07; PROTHROMBIN TIME 11.4 SECONDS (9.7-12.0)
[2023-09-18 20:06] LABS: PTT,PARTIAL THROMBOPLSTIN TIME 28.4 SECONDS (21.7-31.4)
[2023-09-18 22:35] VITALS: BP 118/48; PULSE 75
== END 2023-09-18 22:15 | disposition home or self-care (01) ==
LOC: JD.ED 18:43
DX: I82.401 Acute embolism and thrombosis of unspecified deep veins of right lower extremity (principal); K21.9 Gastro-esophageal reflux disease without esophagitis; E11.9 Type 2 diabetes mellitus without complications; E66.9 Obesity, unspecified; Z90.710 Acquired absence of both cervix and uterus; Z79.899 Other long term (current) drug therapy; Z79.84 Long term (current) use of oral hypoglycemic drugs; Z88.2 Allergy status to sulfonamides; Z88.5 Allergy status to narcotic agent; Z88.6 Allergy status to analgesic agent; Z68.41 Body mass index [BMI] 40.0-44.9, adult
CPT/HCPCS: 36415; 85384; 85610; 85730; 93971-26-RT; 93971-RT; 99284

== ENCOUNTER 2024-06-24 08:12 | Emergency (ER) | payer MEDICARE, BC ==
[2024-06-24 09:35] LABS: BASOPHILS PERCENT AUTO 0.2 % (0.0-1.0); EOSINOPHILS PERCENT AUTO 0.1 % (0.0-6.0); HEMATOCRIT 42.5 % (37.0-47.0); HEMOGLOBIN 14.6 gm/dl (12.0-16.0); IMMATURE GRAN ABSOLUTE AUTO 0.02 K/mm3 (0.00-0.05); IMMATURE GRAN PERCENT AUTO 0.2 % (0.0-0.4); LYMPHOCYTES ABSOLUTE AUTO 1.8 K/mm3 (1.0-4.8); LYMPHOCYTES PERCENT AUTO 18.4 % (24.0-44.0); MEAN CORPUSCULAR HGB CONC 34.4 g/dl (32.0-36.0); MEAN CORPUSCULAR VOLUME 93.2 fl (83.0-99.0); MEAN PLATELET VOLUME 10.7 fl (9.4-12.3); MONOCYTES ABSOLUTE AUTO 0.8 K/mm3 (0.0-0.8); MONOCYTES PERCENT AUTO 7.8 % (0.0-8.0); NEUTROPHILS ABSOLUTE AUTO 7.2 K/mm3 (1.8-7.7); NEUTROPHILS PERCENT AUTO 73.3 % (41.0-71.0); PLATELET COUNT,PLT 194 K/mm3 (150-400); RED BLOOD CELL COUNT 4.56 M/mm3 (4.10-5.30); WHITE BLOOD CELL COUNT,WBC 9.82 K/mm3 (3.9-11.3)
[2024-06-24 09:53] LABS: ALBUMIN 3.9 g/dl (3.4-5.0); BILIRUBIN TOTAL 0.3 mg/dL (0.2-1.0); BUN/CREATININE RATIO 13.8 (14-18); CALCIUM 9.2 mg/dL (8.5-10.1); CREATININE 0.8 mg/dL (0.55-1.02); EST CRCL DRUG DOSING (CG) 53.97 mL/min; MAGNESIUM 1.2 mg/dL (1.8-2.4); PROTEIN TOTAL,TP 7.7 g/dl (6.4-8.2)
[2024-06-24] MEDS: Acetaminophen 325 MG Tab PO ONE (10:20)
[2024-06-24] MEDS: traMADol 50 MG Tab PO ONE (10:29)
[2024-06-24 18:05] VITALS: BP 142/78; PULSE 90
== END 2024-06-24 11:03 | disposition home or self-care (01) ==
LOC: JD.ED 08:12
DX: S82.041A Displaced comminuted fracture of right patella, initial encounter for closed fracture (principal); E11.9 Type 2 diabetes mellitus without complications; E66.9 Obesity, unspecified; K21.9 Gastro-esophageal reflux disease without esophagitis; M19.90 Unspecified osteoarthritis, unspecified site; Z88.8 Allergy status to other drugs, medicaments and biological substances; Z88.5 Allergy status to narcotic agent; Z88.2 Allergy status to sulfonamides; Z79.891 Long term (current) use of opiate analgesic; Z79.899 Other long term (current) drug therapy; Z79.84 Long term (current) use of oral hypoglycemic drugs; Z68.41 Body mass index [BMI] 40.0-44.9, adult; W19.XXXA Unspecified fall, initial encounter
CPT/HCPCS: 36415; 70450; 72125; 73562; 80053; 83735; 85025; 99284; A9270

== ENCOUNTER 2024-11-25 14:02 | Emergency (ER) | payer MEDICARE, BC ==
[2024-11-25 14:28] VITALS: BP 155/68; PULSE 62
[2024-11-25] MEDS: Acetaminophen/oxyCODONE 325-5 MG Tab PO ONE (14:51)
== END 2024-11-25 15:15 | disposition home or self-care (01) ==
LOC: JD.ED 14:02
DX: S52.502A Unspecified fracture of the lower end of left radius, initial encounter for closed fracture (principal); S52.202A Unspecified fracture of shaft of left ulna, initial encounter for closed fracture; K21.9 Gastro-esophageal reflux disease without esophagitis; E11.9 Type 2 diabetes mellitus without complications; Z88.5 Allergy status to narcotic agent; Z88.2 Allergy status to sulfonamides; Z79.899 Other long term (current) drug therapy; Z79.84 Long term (current) use of oral hypoglycemic drugs; W17.89XA Other fall from one level to another, initial encounter; Y93.89 Activity, other specified
CPT/HCPCS: 29125; 99283; A9270; 99284